=== PATIENT | female | born 1955 | race Caucasian/White ===

== ENCOUNTER 2023-03-12 09:01 | Emergency (ER) | payer MEDICARE, OTHER, SELFPAY ==
--- NOTE | ~2023-03-12 | XR_ITS ---
EXAMINATION: XR chest 2V DATE: 03/12/2023 10:15 INDICATION: Cough TECHNIQUE: PA and lateral views of the chest are obtained. COMPARISON: 07/25/2007 FINDINGS: An airspace opacity is present in the right midlung zone. No pleural effusion or pneumothor ax. The cardiomediastinal silhouette is normal. The visualized bones and soft tissues are unremarkabl e. IMPRESSION: 1. Airspace opacity of the right midlung zone which is likely infectious or inflammatory however unde rlying neoplasm could have a similar appearance. Follow-up with nonemergent chest CT is recommended. Reviewed, dictated and finalized at location A. IMPRESSION: 1. Airspace opacity of the right midlung zone which is likely infectious or inf lammatory however underlying neoplasm could have a similar appearance. Follow-u p with nonemergent chest CT is recommended.
[2023-03-12 09:16] VITALS: BP 122/56; PULSE 94; RESP 20; TEMP 37.8; O2SAT 96
--- NOTE | 2023-03-12 10:03 | ED.GENADULT ---
HPI - General Adult General Chief complaint: Upper Respiratory Infection Stated complaint: cough,low grade fever,fatigue Source: patient Mode of arrival: ambulatory Limitations: no limitations History of Present Illness HPI narrative: Patient presents for evaluation of respiratory symptoms for the last 6 days. She reports a productive cough of green/brown sputum a shortness of breath. She has underlying asthma. She has not required her albuterol inhaler much. She reports fever and chills but denies any nausea, vomiting, diarrhea. No recent sick contacts to her knowledge. She has not been taking any OTC medications for her symptoms. She does not smoke. She also reports an erythematous lesion to the right lower leg and a no other to the abdomen for the last 3 days. No new lotions, soaps, detergents, topical products. It does not itch. She does spend time outdoors and lives in the [place]. Related Data Home Medications Medication Instructions Recorded Confirmed amlodipine 5 mg tablet 5 mg PO DIRECTED 03/12/23 03/12/23 atorvastatin 10 mg tablet 10 mg PO DIRECTED 03/12/23 03/12/23 citalopram 20 mg tablet 20 mg PO DIRECTED 03/12/23 03/12/23 conjugated estrogens 0.625 mg/gram 03/12/23 03/12/23 vaginal cream (Premarin) ezetimibe 10 mg tablet 10 mg PO DIRECTED 03/12/23 03/12/23 mometasone 220 mcg/actuation(30 1 inh inhalation DIRECTED 03/12/23 03/12/23 doses) breath activated powder inhaler (Asmanex Twisthaler) Allergies Allergy/AdvReac Type Severity Reaction Status Date / Time Sulfa (Sulfonamide Allergy Severe Hives Verified 03/12/23 09:34 Antibiotics) azithromycin Allergy Intermediate heart Verified 03/12/23 09:34 arrthymias ofloxacin AdvReac Intermediate anxiety Verified 03/12/23 09:34 Review of Systems Review of Systems: CONSTITUTIONAL: Reports fever and chills EYES: Denies visual changes, redness, or discharge. ENT: Denies rhinorrhea, congestion, sore throat, or otalgia. CARDIOVASCULAR: Denies chest pain, palpitations, or edema. RESPIRATORY: Reports productive cough of green/brown sputum and SOB GASTROINTESTINAL: Denies abdominal pain, nausea, vomiting, or diarrhea. GENITOURINARY: Denies dysuria or hematuria. SKIN: Reports erythematous lesion to the right lower leg MUSCULOSKELETAL: Denies back pain, joint pain, or myalgia. NEUROLOGIC: Denies headache, numbness, dizziness, or weakness. PSYCHIATRIC: Denies anxiety or depression. PMFSH Past Medical History Medical History Asthma Hypertension Surgical History Surgical History No pertinent past surgical history Family History Family History Mother Family history non-contributory Social History Social History Smoking status: Never smoker Substance use: never Living arrangements: with family Gender identity (if verbalized by the patient): Female Sexual Orientation (if Verbalized by the Patient): Straight or Heterosexual Spiritual care concerns: No Exam Narrative: GENERAL: Well-appearing, well-nourished, and in no acute distress. HEAD: Normocephalic, atraumatic. EYES: PERRLA and EOMI. ENT: Nares clear, no rhinorrhea or epistaxis. Mucous membranes moist. Oropharynx without tonsillar hypertrophy exudate or other lesions. Bilateral TMs pearly willis nonbulging NECK: Supple. No adenopathy or masses. No carotid bruits or JVD CHEST: Wheezing noted in posterior lung davis bilaterally. Cough present on exam. HEART: Regular rate and rhythm. No murmur heard. Normal peripheral pulses. ABDOMEN: Soft, nontender, nondistended, normal active bowel sounds. EXTREMITIES: Normal range of motion. No edema. SKIN: There is an approximately 3 cm annular erythematous lesion to the right lower
[2023-03-12] MEDS: predniSONE 20 MG TABLET 40 MG PO (10:20)
[2023-03-12] MEDS: IPRATROPIUM BR 0.02% INH SOLN 0.5 MG/2.5 ML VIAL INHALATION (10:20)
[2023-03-12] MEDS: ALBUTEROL SULFATE NEB 2.5 MG/3 ML INH INHALATION (10:20)
== END 2023-03-12 10:56 | disposition home or self-care (01) ==
PROVIDERS: Emergency Provider Nurse Practitioner; PCP Nurse Practitioner Family
DX: J18.9 Pneumonia, unspecified organism (principal); Z20.822 Contact with and (suspected) exposure to COVID-19; J45.909 Unspecified asthma, uncomplicated; I10 Essential (primary) hypertension
CPT/HCPCS: 71046; 87081; 87426; 87804; 87880; 94640; 99213; C9803; G0463; J7512

== ENCOUNTER 2024-10-16 18:36 | Emergency (ER) | payer MEDICARE, OTHER, SELFPAY ==
--- NOTE | ~2024-10-16 | XR_ITS ---
CHEST RADIOGRAPH, PA AND LATERAL CLINICAL HISTORY: cough . COMPARISON: 03/12/2023 TECHNIQUE: PA and lateral views of the chest. FINDINGS The cardiomediastinal silhouette is unremarkable. Increased airspace opacification within the left upper lobe for which an early infiltrate is suspecte d. The remainder of the lungs are clear. IMPRESSION: Left upper lobe infiltrate, as detailed above. Reviewed, dictated and finalized at location A.
--- OUTSIDE RECORDS SUMMARY | 2024-10-16 18:38 | XMS_ITS | Encounter Summary ---
Author Organization [facility] Address [address] [place] [address] Care Team Providers Care Rn Hemodialysis Name Role Phone Shruthi Salazar MD Unavailable [phone] Shruthi Salazar MD Unavailable + [phone] Magalis Morales ASSOCIATE SCHOOL PSYCHOLOGIST Primary Care Provider [phone] Danielle Lima DO Unavailable [phone] Nelia Hager ASSOCIATE SCHOOL PSYCHOLOGIST Primary Care Provider Reason for Visit * Reason Onset Date Comments Scheduling Appointments 07/07/2021 REMINDER CALL FOR DEXA. Encounter Details Date Type Department Care Team (Late st Contact Info) Description 07/07/2021 Telephone [facility] [address] [place] [address] Nathaly Wan RT Scheduling Appointments (REMINDER CALL FOR DEXA. ) Social History Tobacco Use Types Packs/Day Years Used Date Smoking Tobacco: Never Smokeless Tobacco: Never Alcohol Use Standard Drinks/Week Comments Yes 0 (1 standard drink = 0.6 oz pur e alcohol) socially Humiliation, Afraid, Rape, and Kick questionnair e Answer Date Recorded Within the last year, have y ou been afraid of your partner or ex-partner? No 07/21/2020 Within the last year, have y ou been humiliated or emotionally abused in other ways by your partner or ex-partner? No Within the last year, have y ou been kicked, hit, slapped, or otherwise physically hurt by your partner or ex-partner? No 07/21/2020 Within the last year, have y ou been raped or forced to have any kind of sexual activity by your partner or ex-partner? No 07/21/2020 Social Connection and Isolat ion Panel [NHANES] Answer Date Recorded In a typical week, how many times do you talk on the phone with family, friends, or neighbors? More than three times a week 07/21/2020 How often do you get togethe r with friends or relatives? Once a week 07/21/2020 How often do you attend chur ch or mormon services? Never 07/21/2020 Do you belong to any clubs o r organizations such as mosque groups, unions, fraternal or athletic groups, or school groups? No 07/21/2020 How often do you attend meet ings of the clubs or organizations you belong to? Never 07/21/2020 Are you , , di vorced, , never , or living with a partner? 07/21/2020 Overall Financial Resource Strain (CARDIA) Answe r Date Recorded How hard is it for you to pa y for the very basics like food, housing, medical care, and heating? Not hard at all 07/21/2020 PHQ-2 Answer Date Recorded PHQ-2 Total Score (If total score is 3 or more points, staff should administer the PHQ-9) 0 01/22/2021 [facility]ational Stress Questionnaire Answer Date Recorded Do you feel stress - tense, restless, nervous, or anxious, or unable to sleep at night because your mind is troubled all the time - these days? Not at all 07/21/2020 Exercise Vital Sign Answer Date Recorde d On average, how many days pe r week do you engage in moderate to strenuous exercise (like a brisk walk)? 4 days 07/21/2020 On average, how many minutes do you engage in exercise at this level? 20 min 07/21/2020 Hunger Vital Sign Answer Date Recorded Within the past 12 months, y ou worried that your food would run out before you got the money to buy more. Never true 07/21/20 20 Within the past 12 months, t he food you bought just didn't last and you didn't have money to get more. Never true 07/21/2020 PRAPARE - Transportation Answer Date Re corded In the past 12 months, has l ack of transportation kept you from medical appointments or from getting medications? No 07/02 In the past 12 months, has l ack of transportation kept you from meetings, work, or from getting things needed for daily living? No 07/21/2020 Education Answer Date Recorded What is the highest level of school you have completed or the highest degree you have received? High school graduate 07/21/2020 Comments No Sex and Gender Information Value Date Recorded Sex Assigned at Not on file Legal Sex Female 2:34 PM STATION HELPER Gender Identity Female 06/21/2019 9:01 AM STATION HELPER Sexual Orientation Straight 06/21/2019 9: 01 AM STATION HELPER documented as of this encounter Plan of Treatment Not on file documented as of this encounter Visit Diagnoses Not on filedocumented in this encounter Care Teams Rn Hemodialysis Relationship Specialty Start Date End Date Magalis Morales NP PCP - General 06/22/19 06/03/22 Nelia Hager NP [address] [place] [address] PCP - General Family Medicine 06/04/22 Shruthi Salazar MD Allergy and Immunology 03/17/18 Shruthi Salazar MD Allergy and Immunology 12/20/18 09/07/21 Danielle Lima DO [address] [place] [address] Referring Physician Dermatology 07/21/20 documented as of this encounter
--- OUTSIDE RECORDS SUMMARY | 2024-10-16 18:38 | XMS_ITS | Encounter Summary ---
Author Organization [facility] Address [address] [place] [address] Care Team Providers Care Head Refrigerating Engineer Name Role Phone Shruthi Salazar MD Unavailable [phone] Danielle Lima DO Unavailable [phone] Nelia Hager NP Primary Care Provider [phone] Encounter Details Date Type Department Care Team (Late st Contact Info) Description 08/22/2023 Telephone [facility] [address] [place] [address] Lo Yarbrough, RT Social History Tobacco Use Types Packs/Day Years Used Date Smoking Tobacco: Former Cigarettes Passive Smoke Exposure: Past Smokeless Tobacco: Never Alcohol Use Standard Drinks/Week [...] often do you attend chur ch or mormonism services? Never 07/21/2020 Do you belong to any clubs o r organizations such as anglican groups, unions, fraternal or athletic groups, or [...] points, staff should administer the PHQ-9) 0 08/18/2023 [facility] - Occupational Stress Questionnaire Answer Date Recorded [...] on file Legal Sex Female 2:34 PM HEAD OF INTEGRATED MEDIA Gender Identity Female 06/21/2019 9:01 AM HEAD OF INTEGRATED MEDIA Sexual Orientation Straight 06/21/2019 9: 01 AM HEAD OF INTEGRATED MEDIA documented as of this encounter Plan of Treatment Not on file documented as of this encounter Visit Diagnoses Not on filedocumented in this encounter Care Teams Head Refrigerating Engineer Relationship Specialty Start Date End Date Nelia Hager NP [address] [place] [address] PCP - General Family Medicine 06/04/22 Shruthi Salazar MD Allergy and Immunology 03/17/18 Danielle Lima DO [address] [place] [address] Referring Physician Dermatology 07/21/20 documented as of this encounter
--- OUTSIDE RECORDS SUMMARY | 2024-10-16 18:38 | XMS_ITS ---
Author Organization [facility] Address [address] [place] [id number] Care Team Providers Care Health And Fitness Professor Name Role Phone Magalis Cole Primary Care Provider Unavail able Shruthi Salazar Unavailable [phone] REASON FOR VISIT SCIT - Traditional Schedule Allergy immunotherapy Medications Medication SIG (Take, Route, Frequency, Duration) Notes Start Date End Date Status Arnuity Ellipta 100 MCG/ACT 1 puff inhaled daily for 30 days 12/22/2023 Active Lipitor 10 MG 1 tab(s) orally once a day for 30 day(s) Active CeleXA 20 MG 1 tab(s) orally once a day for 30 day(s) Active Norvasc 5 MG 1 tab(s) orally once a day for 30 day(s) Active Arnuity Ellipta 200 MCG/ACT as directed inhaled every 24 hours for 90 days Not-Taking Zetia 10 MG 1 tab(s) orally once a day for 30 day(s) Active ZyrTEC Allergy 10 MG 1 tab(s) orally once a day Active SIT (TRADITIONAL) variable per schedule SC per schedule for to be determined Active PROBIOTIC FORMULA (BACILLUS COAGULANS) - 1 CAP(S) ORALLY ONCE A DAY *Please review for potential replacement for e-prescription and drug interaction check* Not-Taking Vitamin D3 1000 UNIT as directed orally once a day for 30 day(s) Active Auvi-Q 0.3 MG/0.3ML 0.3 mg intramuscularly once for 1 dose(s) Active ASMANEX TWISTHALER 30 DOSE 220 MCG/INH 1 PUFF(S) INHALED ONCE A DAY (IN THE EVENING) for 90 DAYS *Please review for potential replacement for e-prescription and drug interaction check* Not-Taking Flonase Allergy Relief 50 MCG/ACT 1 spray(s) intranasally once a day Not-Taking PROAIR HFA CFC free 90 mcg/inh 2 puff(s) inhaled Q4-6 hours, PRN and per the asthma action plan for 30 day(s) Active Pataday 0.2 % 1 gtt in each affected eye once a day for 90 days Not-Taking FLONASE 50 mcg/inh 1 spray(s) intranasally once a day Active AUVI -Q 0.3 mg 0.3 mg intramuscularly once for 1 dose(s) Active PATADAY 0.2% 1 gtt in each affected eye once a day for 90 days Active Encounters Encounter Location Date Provider Diagnosis [facility] [address] [place] [phone] 10/03/2024 Shruthi Salazar Allergic rhinitis du e to pollen J30.1 ; Other allergic rhinitis J30.89 ; Allergic rhinitis due to animal (cat) (dog) hair and dander J30.81 and Other chronic allergic conjunctivitis H10.45 Assessments Encounter Date Diagnosis (ICD Code) Assessment Notes Treatment Notes Treatment Clinical Notes Section Notes 10/03/2024 Allergic rhinitis due to pollen (ICD-10 - J30.1) 10/03/2024 Other allergic rhinitis (ICD-10 - J30.89) 10/03/2024 Allergic rhinitis due to animal (cat) (dog) hair and dander (ICD-10 - J30.81) 10/03/2024 Other chronic allergic conjunctivitis (ICD-10 - H10.45) Plan Of Treatment Medication Medication Name Sig Start Date Stop Date Notes SIT (TRADITIONAL) variable per schedule SC per schedule for to be determined Next Appt Details Follow Up: 1 Week, Reason: Provider Name:Shruthi monroy, 10/31/2024 10:00:00 AM, [address], [address], Provider Name:Shruthi monroy, 10/31/2024 11:00:00 AM, [address], [address], [place], [address], Progress Notes * Sherry MOFFETT ADOB:[birth year] (69 yo F)Acc No.[id number]:10/03/2024 SCIT-Aeroallergen Patient: Sherry SAUCEDO Provider: Igor Salazar MD :1955 A ge:69 Y S ex:Female Date:10/03/2024 Address:[address] [place], [place] [phone] Pcp:Magalis Cole Subjective: * Chief Complaints: * S CIT - Traditional Schedule Allergy immunotherapy * HPI: * Introduction: The patient is here for scheduled immunotherapy. Please see the attached specialty form regarding the specifics of the administration of these vaccines. As per our protocol, the must undergo a screening health questionnaire (medication changes, reaction(s) to last immunotherapy dose(s), current health status, ACT (if appropriate), self-injectable epinephrine on patient(?) and peak flow (if appropriate)). Also, the patient must wait in our office for 30 minutes after receiving the vaccine(s). Furthermore, every patient must have an epinephrine pen (self-injectable) with them at the time of administration--and carry if for the following 1.5 hours after they leave our office. The patient must also have taken their antihistamine the day of the injection, preferably 2 hours prior. The consent form for SCIT (subcutaneous immunotherapy) is on file. * Medical History: * Surgical History: * Hospitalization/Major Diagno stic Procedure: * Medications: T akingPATADAY 0.2% solution 1 gtt in each affected eye once a day FLONASE 50 mcg/inh spray 1 spray(s) intranasally once a day AUVI -Q 0.3 mg kit 0.3 mg intramuscularly once PROAIR HFA CFC free 90 mcg/inh aerosol 2 puff(s) inhaled Q4-6 hours, PRN and per the asthma action plan Auvi-Q 0.3 MG/0.3ML Solution Auto-injector 0.3 mg intramuscularly once Zetia 10 MG Tablet 1 tab(s) orally once a day ZyrTEC Allergy 10 MG Tablet 1 tab(s) orally once a day Vitamin D3 1000 UNIT Capsule as directed orally once a day Lipitor 10 MG Tablet 1 tab(s) orally once a day CeleXA 20 MG Tablet 1 tab(s) orally once a day Norvasc 5 MG Tablet 1 tab(s) orally once a day Arnuity Ellipta 100 MCG/ACT Aerosol Powder Breath Activated 1 puff inhaled daily SIT (TRADITIONAL) variable see record per schedule SC per schedule Taking PATADAY 0.2% solution 1 gtt in each affected eye once a day Taking FLONASE 50 mcg/inh spray 1 spray(s) intranasally once a day Taking AUVI -Q 0.3 mg kit 0.3 mg intramuscularly once Taking PROAIR HFA CFC free 90 mcg/inh aerosol 2 puff(s) inhaled Q4-6 hours, PRN and per the asthma action plan Taking Auvi-Q 0.3 MG/0.3ML Solution Auto-injector 0.3 mg intramuscularly once Taking Zetia 10 MG Tablet 1 tab(s) orally once a day Taking ZyrTEC Allergy 10 MG Tablet 1 tab(s) orally once a day Taking Vitamin D3 1000 UNIT Capsule as directed orally once a day Taking Lipitor 10 MG Tablet 1 tab(s) orally once a day Taking CeleXA 20 MG Tablet 1 tab(s) orally once a day Taking Norvasc 5 MG Tablet 1 tab(s) orally once a day Taking Arnuity Ellipta 100 MCG/ACT Aerosol Powder Breath Activated 1 puff inhaled daily Taking SIT (TRADITIONAL) variable see record per schedule SC per schedule Not-Taking/PRNPataday 0.2 % Solution 1 gtt in each affected eye once a day Flonase Allergy Relief 50 MCG/ACT Suspension 1 spray(s) intranasally once a day ASMANEX TWISTHALER 30 DOSE 220 MCG/INH AEROSOL POWDER 1 PUFF(S) INHALED ONCE A DAY (IN THE EVENING) , Notes to Pharmacist: *Please review for potential replacement for e-prescription and drug interaction check*PROBIOTIC FORMULA (BACILLUS COAGULANS) - CAPSULE 1 CAP(S) ORALLY ONCE A DAY , Notes to Pharmacist: *Please review for potential replacement for e-prescription and drug interaction check*Arnuity Ellipta 200 MCG/ACT Aerosol Powder Breath Activated as directed inhaled every 24 hours Not-Taking/PRN Pataday 0.2 % Solution 1 gtt in each affected eye once a day Not-Taking/PRN Flonase Allergy Relief 50 MCG/ACT Suspension 1 spray(s) intranasally once a day Not-Taking/PRN ASMANEX TWISTHALER 30 DOSE 220 MCG/INH AEROSOL POWDER 1 PUFF(S) INHALED ONCE A DAY (IN THE EVENING) , Notes to Pharmacist: *Please review for potential replacement for e-prescription and drug interaction check*Not-Taking/PRN PROBIOTIC FORMULA (BACILLUS COAGULANS) - CAPSULE 1 CAP(S) ORALLY ONCE A DAY , Notes to Pharmacist: *Please review for potential replacement for e-prescription and drug interaction check*Not-Taking/PRN Arnuity Ellipta 200 MCG/ACT Aerosol Powder Breath Activated as directed inhaled every 24 hours Objective: * Vitals: Assessment: * Assessment: 1. A llergic rhinitis due to pollen - J30.1 (Primary) 2 . O ther allergic rhinitis - J30.89 3 . A llergic rhinitis due to animal (cat) (dog) hair and dander - J30.81 4 . O ther chronic allergic conjunctivitis - H10.45 Plan: * Treatment: * Procedure Codes: 9 5117 IMMUNOTHERAPY INJECTIONS * Follow Up: 1 Week * Billing Information: * Visit Code: * Procedure Codes: 52296 IMMUNOTHERAPY INJECTIONS. * ERSMITH APPRENTICE Sign off status: Completed true * Provider: Igor Salazar MD Date: 10/03/2024 Generated for Yariel bateman/Allen/Deisy on: 0 10/16/2024 06:38 PM CDT History and Physical Notes * HPI (History of Present Illness) Category Sub-Category Detail Notes Category Not es *Introduction The patient is here for scheduled immunotherapy. Please see the attached specialty form regarding the specifics of the administration of these vaccines. As per our protocol, the must undergo a screening health questionnaire (medication changes, reaction(s) to last immunotherapy dose(s), current health status, ACT (if appropriate), self-injectable epinephrine on patient(?) and peak flow (if appropriate)). Also, the patient must wait in our office for 30 minutes after receiving the vaccine(s). Furthermore, every patient must have an epinephrine pen (self-injectable) with them at the time of administration--and carry if for the following 1.5 hours after they leave our office. The patient must also have taken their antihistamine the day of the injection, preferably 2 hours prior. The consent form for SCIT (subcutaneous immunotherapy) is on file.
--- OUTSIDE RECORDS SUMMARY | 2024-10-16 18:38 | XMS_ITS ---
Author Organization [facility] Address [address] [place] [phone] Care Team Providers Care Relocation Specialist Name Role Phone Magalis Cole Primary Care Provider Unavail able Shruthi Salazar Unavailable [phone] REASON FOR VISIT SCIT - Traditional Schedule Allergy immunotherapy Medications Medication SIG (Take, Route, Frequency, Duration) Notes Start Date End Date Status SIT (TRADITIONAL) variable per schedule SC per schedule for to be determined Active Encounters Encounter Location Date Provider Diagnosis [facility] [address] [place] [id number] 09/05/2024 Shruthi Salazar Allergic rhinitis du e to pollen J30.1 ; Other allergic rhinitis J30.89 ; Allergic rhinitis due to animal (cat) (dog) hair and dander J30.81 and Other chronic allergic conjunctivitis H10.45 Assessments Encounter Date Diagnosis (ICD Code) Assessment Notes Treatment Notes Treatment Clinical Notes Section Notes 09/05/2024 Allergic rhinitis due to pollen (ICD-10 - J30.1) 09/05/2024 Other allergic rhinitis (ICD-10 - J30.89) 09/05/2024 Allergic rhinitis due to animal (cat) (dog) hair and dander (ICD-10 - J30.81) 09/05/2024 Other chronic allergic conjunctivitis (ICD-10 - H10.45) Plan Of Treatment Medication Medication Name Sig Start Date Stop Date Notes SIT (TRADITIONAL) variable per schedule SC per schedule for to be determined Next Appt Details Follow Up: 1 Week, Reason: Provider Name:Shruthi monroy, 10/31/2024 10:00:00 AM, [address] [facility], [address], [place], [address], Provider Name:Shruthi monroy, 10/31/2024 11:00:00 AM, [address] [facility], [address], [place], [address], Progress Notes * Sherry MOFFETT ADOB:[birth year] (69 yo F)Acc No.[id number]:09/05/2024 SCIT-Aeroallergen Patient: Sherry SAUCEDO Provider: Igor Salazar MD :1955 A ge:69 Y S ex:Female Date:09/05/2024 Address:[address] [place], [place] [id number] Pcp:Magalis Cole Subjective: * Chief Complaints: * [...] * Hospitalization/Major Diagno stic Procedure: * Medications: Objective: * Vitals: Assessment: * Assessment: 1. [...] Information: * Visit Code: * Procedure Codes: 96490 IMMUNOTHERAPY INJECTIONS. * K OUT MAN Sign off status: Completed true * Provider: Igor Salazar MD Date: 0 09/05/2024 Generated for Yariel bateman/Allen/Deisy on: 0 10/16/2024 [...]
--- OUTSIDE RECORDS SUMMARY | 2024-10-16 18:39 | XMS_ITS | Encounter Summary ---
Author Organization [facility] Address [address] [place] [address] Care Team Providers Care General Magistrate Name Role Phone Unavailable Primary Care Provider Unavailabl e Encounter Details Date Type Department Care Team (Late st Contact Info) Description 08/09/2018 Lab Requisition [facility] [address] [facility] [facility] [place] [id number] Danielle Lima DO [address] [facility] [address] [place] [address] Social History Tobacco Use Types Packs/Day Years Used Date Smoking Tobacco: Never Assessed Sex and Gender Information Value Date Recorded Sex Assigned at Not on file Gender Identity Not on file Sexual Orientation Not on file documented as of this encounter Plan of Treatment Not on file documented as of this encounter Procedures Procedure Name Priority Date/Time Associated Diagnosis Comments DERMATOPATH TECHNICAL REPORT Routine 08/08/2018 12:00 AM CIRCULATION CLERK documented in this encounter Results * DERMATOPATH TECHNICAL REPORT (08/08/2018 12:00 AM CIRCULATION CLERK) Case Report Dermatopathology Report Case: [id number] Authorizing Provider: Danielle Lima DO Collected: 08/08/2018 12:00 AM Pathologist: Opal Ricci MD Received: 08/09/2018 07:07 AM Specimens: A) - Skin, right ant lower leg B) - Skin, left calf 9 11:48 AM CIRCULATION CLERK DERMATOPATHOLOGY LABORATORY Addendum 1 At the request of the diagnosing physician, the technical component for MART-1/Melan A on Specimen B was performed by [facility] Dermatopathology Laboratory. 9 11:48 AM CIRCULATION CLERK DERMATOPATHOLOGY LABORATORY Addendum electronically signed by Opal Ricci MD on 08/11/2018 at 11:48 AM Clinical History A: R/O NMSC, irregular color, irritated. B: R/O ISK vs MM, irregular color, irritated. 11:48 AM [facility] DERMATOPATHOLOGY LABORATORY Gross Description Specimen A: Received is one formalin filled container labeled with the patient's name and designated right ant lower leg. The specimen consists of a shave biopsy measuring [id number]. Jar 0. Specimen B: Received is one formalin filled container labeled with the patient's name and designated left calf. The specimen consists of a shave biopsy measuring [id number]. Jar 0. [facility] Dermatopathology Laboratory performed the technical component only. 11:48 AM [facility] DERMATOPATHOLOGY LABORATORY Embedded Images 11:48 AM [facility] DERMATOPATHOLOGY LABORATORY DISCLAIMER An external and internal positive and negative controls are appropriate for the histochemical, immunohistochemical and immunofluorescence stain(s) in this case (if any), except where stated explicitly. The performance characteristics of the stain(s) cited in this report were developed and its performance characteristic determined by the Dermatopathology Laboratory at [facility]. These tests need not be, and therefore are not, approved by the [place] Food and Drug Administration. The tests are used for clinical purposes. 11:48 AM [facility] DERMATOPATHOLOGY LABORATORY Pathology/Cytology TISSUE SPECIMEN FROM SKIN / Unknown 08/08/2018 08/09/2018 7:07 AM CIRCULATION CLERK Miscellaneous samples (specimen) TISSUE SPECIMEN FROM SKIN / Unknown 08/08/2018 08/09/2018 7:07 AM CIRCULATION CLERK Danielle Lima DO LAB - PATHOLOGY/C YTOLOGY ORDERABLES DERMATOPATHOLOGY LABORATORY [facility] - Department of Dermatology [address] [place] [address], [address] [place] [address], [facility] [phone] documented in this encounter Visit Diagnoses Not on filedocumented in this encounter
--- OUTSIDE RECORDS SUMMARY | 2024-10-16 18:39 | XMS_ITS | Clinical Summary ---
Author Organization [facility] Address [address] [place] [address] Care Team Providers Care Sap Integration Architect Name Role Phone Shruthi Salazar MD Unavailable [phone] Danielle Lima DO Unavailable [phone] Nelia Hager NP Primary Care Provider [phone] Allergies Active Allergy Reactions Criticality Noted Date Comments Azithromycin Other (See comments) Reaction: pal, Ciprofloxacin Other (See comments) Reaction: anxeity, Echinacea Other (See comments) Low Reaction: Other, Reaction: Other, Sulfa (Sulfonamide Antibiotics) Sulfanilamide Rash Reaction: Rash, , Reaction: Rash, , Medications albuterol HFA (PROVENTIL HFA,VENTOLIN HFA) 90 mcg/actuation inhaler INHALE TWO PUFFS BY MOUTH EVERY 4 TO 6 HOURS NEEDED 18 Inhaler 2 5 Active cholecalciferol (VITAMIN D-3) 2,000 unit tablet Take 3 tablets (6,000 Units total) by mouth daily Active cetirizine (ZyrTEC) 10 mg tablet Take 1 tablet (10 mg total) by mouth nightly Active Lactobacillus acidophilus (Probiotic) 10 billion cell capsule Take by mouth Active Asmanex Twisthaler 220 mcg/ actuation (30) aerosol powdr breath activated INHALE 1 PUFF BY MOUTH EVERY EVENING 2 Active EPINEPHrine (Auvi-Q) 0.3 mg/0.3 mL auto-injection syringe Active estrogens, conjugated, (Premarin) vaginal cream Apply small amount to fingertiip and apply to inner labia 2x/week prn. 30 g 2 3 Active amLODIPine (NORVASC) 5 mg tabletIndications: Essential hypertension Take 1 tablet (5 mg total) by mouth daily 90 tablet 3 4 Active fluticasone furoate (ARNUITY) 100 mcg/actuation inhaler Inhale 1 puff daily Rinse mouth with water after use. Do not swallow. Active clotrimazole-betam ethasone (LOTRISONE) cream Apply topically 2 (two) times a day as needed (rash) 30 g 1 4 Active atorvastatin (LIPITOR) 10 mg tablet Take 1 tablet (10 mg total) by mouth daily 90 tablet 4 4 Active nystatin powder Apply topically 4 (four) times a day 15 g 1 4 Active nystatin cream Apply topically 2 (two) times a day as needed (rash) 30 g 1 4 Active ezetimibe (ZETIA) 10 mg tabletIndications: Hyperlipidemia, unspecified hyperlipidemia type Take 1 tablet (10 mg total) by mouth daily 90 tablet 1 4 Active clindamycin (CLEOCIN T) 1 % gel Apply topically 2 (two) times a day Apply to face once daily. 60 g 1 5 Active citalopram (CeleXA) 20 mg tabletIndications: Mild episode of recurrent major depressive disorder Take 1 tablet (20 mg total) by mouth daily 90 tablet 1 5 Active Active Problems Problem Noted Date Diagnosed Date Medicare annual wellness visit, subsequent 08/23 Assessment & Plan (08/23/2024 11:31 AM MACHINE LEATHER TRIMMER): A yearly Medicare Annual Wellness Visit has been performed today. Sherry Moffett is up to date on screening tests. She is in need of None- no screening indicated at this time- these have been ordered. She is not up to date on needed preventative vaccinations; She is in need of Zoster and Covid-19 (booster). These have been ordered/arranged unless otherwise indicated. Age-related cataract of both eyes 02/09/2022 Assessment & Plan (02/09/2022 9:16 AM CDT): Going to be having cataracts removed by Dr. Escalera, regular eye doctor is Dr. Urias. She will reach out to us for preop clearance once she has surgery date. At risk for loss of bone density 07/10/2019 Overview (02/09/2022): Is Found 07/2019 on bone density. We will start patient on weekly fosamax x 2 yrs and repeat bone density in 2 yrs. Bone density done on 07/08/2021 showed normal bone density Switch to calcium/vit d Assessment & Plan (02/09/2022 7:34 AM CDT): HPI: Condition is improving A&P:osteoporosis noted on 07/2019 on bone density. We started patient on weekly fosamax x 2 yrs and repeated bone density in 2 yrs. Bone density done on 07/08/2021 showed normal bone density Switched from fosamax to calcium/vit d Assessment & Plan (08/05/2021 10:26 AM MACHINE LEATHER TRIMMER): HPI: Condition is improving A&P: Discussed/ordered labs, encouraged healthy, low carbohydrate lifestyle and at least 150min/week of exercise, Bone density done on 07/08/2021 showed normal bone density We recommend calcium 500-1000 mg per day and vitamin D3 supplementation 2000 units per day. Also, daily exercise has been shown to help build and maintain bone density and prevent onset of osteoporosis. Assessment & Plan (01/22/2021 10:58 AM CDT): HPI: Condition is stable A&P: Discussed/ordered labs, encouraged healthy, low carbohydrate lifestyle and at least 150min/week of exercise, continue on Fosamax 70mg weekly and the probiotic daily taking the Fosamax. Push water. Bone density done in July 2019 and we will repeat bone density in July 2021. Assessment & Plan (07/17/2020 3:34 PM MACHINE LEATHER TRIMMER): HPI: Condition is stable A&P: Discussed/ordered labs, encouraged healthy, low carbohydrate lifestyle and at least 150min/week of exercise, continue on Fosamax x2 years. This was found on bone density July 2019, will repeat bone density July 2021 She got nausea/gassy/bloated/gained 7 pounds after the fosamax. She took it for 6 wks but then stopped it. Discussed w pt that she needs to be on this medication. We will have her take the probiotic a day before the medication and the day of, may need to take it the day after also. Push water. Please start taking probiotic 20billion CFU daily meterman. This will help maintain the good bacteria that is in your gut. Please note that the refrigerated probiotics are going to be superior to the shelf stable ones. However, once the refrigerated ones are no longer cold, they are old and should be considered not effective. For this reason, I recommend purchasing a bottle of shelf stable ones also if you are going to be out of town or do not have a stable refrigeration system in place for the probiotic. Assessment & Plan (12/25/2019 10:58 AM CDT): Found 07/2019 on bone density. Pt did not start on fosamax yet. Discussed risks/benefit with pt and she will start now. Please take daily probiotic to help with GI distress Mixed hyperlipidemia 12/20/2018 Assessment & Plan (08/23/2024 11:29 AM MACHINE LEATHER TRIMMER): Cholesterol well controlled, continues Atorvastatin, fish oil, and Zetia. No side effects noted and liver function wnl. Assessment & Plan (02/16/2024 11:30 AM CDT): Cholesterol well controlled, continues Atorvastatin, fish oil, and Zetia. No side effects noted and liver function wnl. Assessment & Plan (02/10/2023 11:00 AM CDT): Cholesterol well controlled, continues Atorvastatin, fish oil, and Zetia. No side effects noted and liver function wnl. Assessment & Plan (08/12/2022 12:30 PM MACHINE LEATHER TRIMMER): Continues Atorvastatin and fish oil, no side effects reported. Labs ordered Assessment & Plan (02/09/2022 7:35 AM CDT): HPI: Condition is stable A&P: Discussed/ordered labs, encouraged healthy, low carbohydrate lifestyle and at least 150min/week of exercise, continue on atorvastatin 10 mg daily, fish oil daily Assessment & Plan (08/05/2021 10:29 AM MACHINE LEATHER TRIMMER): HPI: Condition is stable A&P: Discussed/ordered labs, encouraged healthy, low carbohydrate lifestyle and at least 150min/week of exercise, continue on Zetia 10 mg daily and start back on fish oil daily start on fish oil 2000-2400mg of EPA/DHA. You will find this by looking at the ingredients section of the bottle of fish oil. Please add the EPA and DHA numbers together and take enough capsules to meet the 2000-2400mg every day. This dose will help bring down your triglycerides along with a lower carb lifestyle and exercise. The brand [employer] [place] 3 2100 Olcenic Blend is a good brand and you will only need to take one capsule daily Assessment & Plan (01/22/2021 7:29 AM CDT): HPI: Condition is stable A&P: Discussed/ordered labs, encouraged healthy, low carbohydrate lifestyle and at least 150min/week of exercise, continue on Zetia 10 mg daily and fish oil daily. Assessment & Plan (07/17/2020 1:45 PM MACHINE LEATHER TRIMMER): HPI: Condition is stable A&P: Discussed/ordered labs, encouraged healthy, low carbohydrate lifestyle and at least 150min/week of exercise, continue on Zetia 10 mg on fish oil daily Assessment & Plan (12/25/2019 9:19 AM CDT): Discussed labs, Condition is stable, encouraged healthy, low carbohydrate diet and at least 150min/week of exercise, continue on zetia 10mg and fish oil-please take enough fish oil to meet the EPA/DHA to be 2200-2400mg daily Assessment & Plan (06/22/2019 10:10 AM MACHINE LEATHER TRIMMER): Discussed labs, Condition is stable, encouraged healthy, low carbohydrate diet and at least 150min/week of exercise, continue on zetia 10mg and fish oil-please take enough fish oil to meet the EPA/DHA to be 2200-2400mg daily Class 2 obesity due to exces s calories without serious comorbidity with body mass index (BMI) of 39.0 to 39.9 in adult 12/20/2018 Assessment & Plan (08/18/2023 12:53 PM MACHINE LEATHER TRIMMER): Has been working on diet modifications, down 5 lbs. Healthy, low carbohydrate lifestyle and exercise for 150min/week recommended Assessment & Plan (03/30/2023 1:56 PM CDT): Healthy, low carbohydrate lifestyle and exercise for 150min/week recommended Assessment & Plan (02/10/2023 11:01 AM CDT): Healthy, low carbohydrate lifestyle and exercise for 150min/week recommended Assessment & Plan (08/12/2022 12:31 PM MACHINE LEATHER TRIMMER): Healthy, low carbohydrate lifestyle and exercise for 150min/week recommended Assessment & Plan (02/09/2022 7:35 AM CDT): HPI: Condition is not at/near goal goal BMI <30 A&P: Healthy, high-protein, lower carbohydrate, lower fat lifestyle and exercise for 150min/week recommended Recommend tracking everything you put in your mouth on an dana like Sun-eee Lower carb substitutions: [employer] carries a zero net carb bread If you are looking for whole potatoes, like to use in soup or new potato shape/flavor, radishes are a great replacement If you are looking for mashed potatoes, riced cauliflower in the frozen bag section are a great replacement For pasta, try using zucchini noodles, lay them out on a cookie sheet and pat dry with a tea towel to try to remove as much moisture as possible. Heat your pasta sauce on the stove and put the noodles in for 30-45 seconds. If you leave them in much longer they will become mushy [place] and/or coconut flour instead of regular flour For pizza dough, try fathead pizza dough recipe online. To get a crispy crust, bake on one side for 8-12 min, then flip over and bake on the other side for 8-12 min, then put toppings on and bake until the cheese on top of pizza melts chaffles recipe online For ice cream, try the brand Enlightened To replace coffee creamer and make it low carb, use heavy creamer with sugar free [place] sweetener For chips, try Whisps or pork rinds For yogurt, try Two Good algerian yogurt Use Pinterest for recipe ideas. Type in low carb... Hand Measurements: A fist or cupped hand = 1 cup 1 cup = 1 -2 servings of fruit juice 1 oz. of cold cereal 2 oz. of cooked cereal, rice or pasta 8 oz. of milk or yogurt A thumb = 1 oz. of cheese Consuming low-fat cheese helps you meet the required servings from the milk, yogurt and cheese group. 1 oz. of low-fat cheese counts as 8 oz. of milk or yogurt. Handful = 1-2 oz. of snack food Thumb tip = 1 teaspoon Keep high-fat foods, such as peanut butter and mayonnaise, at a minimum. One teaspoon is equal to the end of your thumb, from the knuckle up. Three teaspoons equals 1 tablespoon. Palm = 3 oz. of meat Choose lean poultry, fish, shellfish and beef. One palm size portion equals 3 oz. for an adult and 1 -2 oz. for a child under 5. 1 tennis ball or a fist= 1/2 cup of fruit and vegetables Healthy diets include a variety of colorful fruits and vegetables every day. The secret to serving size is in your hand. Snacking can add up. Remember, 1 handful equals 1 oz. of nuts and small candies. For chips and pretzels, 2 handfuls equals 1 oz. Because hand sizes vary, compare your fist size to an actual measuring cup. Assessment & Plan (09/08/2021 9:41 AM MACHINE LEATHER TRIMMER): HPI: Condition is improving, but not at goal goal BMI <30 A&P: Healthy, high-protein, lower carbohydrate, lower fat lifestyle and exercise for 150min/week recommended, continue working with Nelia Hager NP for CHIP program. Substitutions: Recommend tracking everything you put in your mouth on an dana like Sun-eee or Gynzy [employer] carries a zero net carb bread If you are looking for whole potatoes, like to use in soup or new potato shape/flavor, radishes are a great replacement If you are looking for mashed potatoes, riced cauliflower in the frozen bag section are a great replacement For pasta, try using zucchini noodles, lay them out on a cookie sheet and pat dry with a tea towel to try to remove as much moisture as possible. Heat your pasta sauce on the stove and put the noodles in for 30-45 seconds. If you leave them in much longer they will become mushy [place] and/or coconut flour instead of regular flour For pizza dough, try fathead pizza dough recipe online. To get a crispy crust, bake on one side for 8-12 min, then flip over and bake on the other side for 8-12 min, then put toppings on and bake until the cheese on top of pizza melts chaffles recipe online For ice cream, try the brand Enlightened To replace coffee creamer and make it low carb, use heavy creamer with sugar free Torani sweetener For chips, try Whisps or pork rinds For yogurt, try Two Good algerian yogurt Use Pinterest for recipe ideas. Type in low carb... Assessment & Plan (08/05/2021 10:29 AM MACHINE LEATHER TRIMMER): HPI: Condition is not at/near goal goal BMI <30 A&P: Healthy, high-protein, lower carbohydrate, lower fat lifestyle and exercise for 150min/week recommended We will have pt see Nelia Hager NP for weight loss Substitutions: Recommend tracking everything you put in your mouth on an dana like Sun-eee or Seculertphorm [employer] carries a zero net carb bread If you are looking for whole potatoes, like to use in soup or new potato shape/flavor, radishes are a great replacement If you are looking for mashed potatoes, riced cauliflower in the frozen bag section are a great replacement For pasta, try using zucchini noodles, lay them out on a cookie sheet and pat dry with a tea towel to try to remove as much moisture as possible. Heat your pasta sauce on the stove and put the noodles in for 30-45 seconds. If you leave them in much longer they will become mushy [place] and/or coconut flour instead of regular flour For pizza dough, try fathead pizza dough recipe online. To get a crispy crust, bake on one side for 8-12 min, then flip over and bake on the other side for 8-12 min, then put toppings on and bake until the cheese on top of pizza melts chaffles recipe online For ice cream, try the brand Enlightened To replace coffee creamer and make it low carb, use heavy creamer with sugar free Torani sweetener For chips, try Whisps or pork rinds For yogurt, try Two Good algerian yogurt Use Pinterest for recipe ideas. Type in low carb... Assessment & Plan (01/22/2021 7:28 AM CDT): HPI: Condition is not at/near goal goal BMI <30 A&P: Healthy, high-protein, lower carbohydrate, lower fat lifestyle and exercise for 150min/week recommended Substitutions: Recommend tracking everything you put in your mouth on an dana like Sun-eee or Gynzy [employer] carries a zero net carb bread If you are looking for whole potatoes, like to use in soup or new potato shape/flavor, radishes are a great replacement If you are looking for mashed potatoes, riced cauliflower in the frozen bag section are a great replacement For pasta, try using zucchini noodles, lay them out on a cookie sheet and pat dry with a tea towel to try to remove as much moisture as possible. Heat your pasta sauce on the stove and put the noodles in for 30-45 seconds. If you leave them in much longer they will become mushy [place] and/or coconut flour instead of regular flour For pizza dough, try fathead pizza dough recipe online. To get a crispy crust, bake on one side for 8-12 min, then flip over and bake on the other side for 8-12 min, then put toppings on and bake until the cheese on top of pizza melts chaffles recipe online For ice cream, try the brand Enlightened To replace coffee creamer and make it low carb, use heavy creamer with sugar free Torani sweetener For chips, try Whisps or pork rinds For yogurt, try Two Good algerian yogurt Use Pinterest for recipe ideas. Type in low carb... Assessment & Plan (07/21/2020 10:17 AM MACHINE LEATHER TRIMMER): Healthy, low carbohydrate lifestyle and exercise for 150min/week recommended Assessment & Plan (07/17/2020 1:42 PM MACHINE LEATHER TRIMMER): HPI: Condition is stable A&P: Healthy, low carbohydrate lifestyle and exercise for 150min/week recommended Substitutions: [employer] carries a zero net carb bread If you are looking for whole potatoes, like to use in soup or new potato shape/flavor, radishes are a great replacement If you are looking for mashed potatoes, riced cauliflower in the frozen bag section are a great replacement For pasta, try using zucchini noodles, lay them out on a cookie sheet and pat dry with a tea towel to try to remove as much moisture as possible. Heat your pasta sauce on the stove and put the noodles in for 30-45 seconds. If you leave them in much longer they will become mushy [place] and/or coconut flour instead of regular flour For pizza dough, try fathead pizza dough recipe online. To get a crispy crust, bake on one side for 8-12 min, then flip over and bake on the other side for 8-12 min, then put toppings on and bake until the cheese on top of pizza melts chaffles recipe online For ice cream, try the brand Enlnithinened Use Pinterest for recipe ideas. Type in low carb... Assessment & Plan (12/25/2019 9:19 AM CDT): Healthy, low carbohydrate lifestyle and exercise for 150min/week recommended Assessment & Plan (06/22/2019 10:17 AM MACHINE LEATHER TRIMMER): Healthy, low carbohydrate diet and exercise for 150min/week recommended Assessment & Plan (12/20/2018 11:09 AM CDT): Obesity is unchanged. Discussed the patient's BMI. The BMI is above average; BMI management plan is completed. General weight loss/lifestyle modification strategies discussed (elicit support from others; identify saboteurs; non-food rewards, etc). Basal cell carcinoma (BCC) of skin of face 12/18 Overview (12/18/2018): Managed by Dr. Jacob Castillo [facility] Assessment & Plan (02/09/2022 7:36 AM CDT): Patient sees Dermatology every 6 months. Recommend sunscreen regularly in a big floppy had long sleeves if the patient is going to be out in the sun. Patient does have a pool. Assessment & Plan (08/05/2021 10:29 AM MACHINE LEATHER TRIMMER): HPI: Condition is stable A&P: Continue seeing dermatology every 6 months. For sunscreen regularly and a big floppy hat and long sleeves if you are going to be out in the sun Pt has a pool Assessment & Plan (01/22/2021 11:19 AM CDT): Condition is stable. Pt sees Dr. Lima in [place] every 6 months. She had a basal cell removed from her left arm September 2019 and had a Mohs procedure done. She had another basal cell removed from her face September 2020. Pt wears sunscreen regularly. Assessment & Plan (07/17/2020 3:39 PM MACHINE LEATHER TRIMMER): Patient sees Dr. Lima in [place] every 6 months. She had a basal cell removed from her left arm September 2019 and had a Mohs procedure done. Patient wear sunscreen regularly Assessment & Plan (12/25/2019 11:03 AM CDT): Pt sees Dr. Lima in [place] every 6 mo, she saw her in Sep 2019 and had basal cell removed from left arm. She has had MOHS procedures done. She wears sunscreen. Assessment & Plan (06/22/2019 10:15 AM MACHINE LEATHER TRIMMER): Pt sees Dr. Lima in [place] every 6 mo, she is due to see her now. She has had MOHS procedures done. Last one was over the summer. She wears sunscreen. Asthma due to environmental allergies 03/17/2018 Assessment & Plan (08/12/2022 12:32 PM MACHINE LEATHER TRIMMER): Has been stable, just finished up her allergy shots in July. Continues Arnuity 200 mcg 1 puff daily, Zyrtec, and Flonase prn. Assessment & Plan (02/09/2022 9:15 AM CDT): HPI: Condition is stable A&P: Discussed/ordered labs, encouraged healthy, low carbohydrate lifestyle and at least 150min/week of exercise, continue seeing Dr. Salazar skip tender, albuterol as needed, Arnuity 200 mcg 1 puff daily Please consider the albuterol as a rescue only medication. If needing the albuterol more than 2xwk, please contact office. Continue using zyrtec daily, flonase as needed and saline nose rinses Assessment & Plan (08/05/2021 10:31 AM MACHINE LEATHER TRIMMER): HPI: Condition is stable A&P: Discussed/ordered labs, encouraged healthy, low carbohydrate lifestyle and at least 150min/week of exercise, continue Seeing Dr. Salazar skip tender, albuterol as needed. Asmanex 110 mcg 1 puffs daily as controller Please consider the albuterol as a rescue only medication. If needing the albuterol more than 2xwk, please contact office. Assessment & Plan (01/22/2021 11:11 AM CDT): HPI: Condition is stable, using albuterol inhaler about once a month. A&P: Discussed/ordered labs, encouraged healthy, low carbohydrate lifestyle and at least 150min/week of exercise. Pt states she is taking a break from Asmanex inhaler for the summer per skip tender Dr. Salazar. States her albuterol inhaler is about 5 years old, but that she will get a new prescription from her skip tender in [address] Salazar. Please consider the albuterol as a rescue only medication. If needing the albuterol more than 2xwk, please contact office. Discussed with patient/parent that asthma appears to be well controlled at this time but to monitor for changes in breathing/wheezing symptoms as allergies/cold symptoms can cause an asthma flare. Contact office if pt begins with concerning asthma symptoms Assessment & Plan (07/17/2020 3:37 PM MACHINE LEATHER TRIMMER): HPI: Condition is stable A&P: Discussed/ordered labs, encouraged healthy, low carbohydrate lifestyle and at least 150min/week of exercise, continue focusing on keeping allergies under control to maintain asthma control. Patient does not use her asthma over the winter, but this year her specialist wants her on it all winter due to covid. If your needing her albuterol inhaler more than twice a week please contact my office. Assessment & Plan (12/25/2019 11:09 AM CDT): Discussed environmental controls No smoking around patient, no animals in bedroom, keep windows closed, no hanging clothes on the line Take claritin/zyrtec/jazmyne in the morning Flonase at bedtime Use the saline rinses/netipot in nose twice daily and as needed If working or playing outside, may need to do saline rinses when coming in and change clothes right away Keep the allergies under control to keep asthma controlled. If needing albuterol more than 2xwk, please call office She doesn't need her asmanex over the winter Pt on monthly allergy shots Assessment & Plan (06/22/2019 10:05 AM MACHINE LEATHER TRIMMER): Discussed environmental controls No smoking around patient, no animals in bedroom, keep windows closed, no hanging clothes on the line Take claritin/zyrtec/jazmyne in the morning Flonase at bedtime Use the saline rinses/netipot in nose twice daily and as needed If working or playing outside, may need to do saline rinses when coming in and change clothes right away Keep the allergies under control to keep asthma controlled. If needing albuterol more than 2xwk, please call office She doesn't need her asmanex over the winter Pt on monthly allergy shots Atrophic vaginitis 03/17/2018 Assessment & Plan (02/09/2022 9:14 AM CDT): HPI: Condition is stable A&P: Discussed/ordered labs, encouraged healthy, low carbohydrate lifestyle and at least 150min/week of exercise, continue on Premarin cream twice weekly, taking probiotics 20 billion daily Assessment & Plan (08/05/2021 7:54 AM MACHINE LEATHER TRIMMER): HPI: Condition is stable A&P: Discussed/ordered labs, encouraged healthy, low carbohydrate lifestyle and at least 150min/week of exercise, continue on Premarin cream twice weekly Assessment & Plan (01/22/2021 11:05 AM CDT): HPI: Condition is stable A&P: Discussed/ordered labs, encouraged healthy, low carbohydrate lifestyle and at least 150min/week of exercise, continue on Premarin cream twice weekly. Assessment & Plan (07/17/2020 1:44 PM MACHINE LEATHER TRIMMER): HPI: Condition is stable A&P: Discussed/ordered labs, encouraged healthy, low carbohydrate lifestyle and at least 150min/week of exercise, continue on Premarin cream Assessment & Plan (06/22/2019 10:13 AM MACHINE LEATHER TRIMMER): Labs ordered Condition is stable, encouraged healthy, low carbohydrate diet and at least 150min/week of exercise, continue on premarin cream 1-2 times a week as needed Vitamin D deficiency 03/17/2018 Assessment & Plan (02/10/2023 11:00 AM CDT): Vitamin D level WNL. Assessment & Plan (02/09/2022 7:36 AM CDT): HPI: Condition is stable A&P: Discussed/ordered labs, encouraged healthy, low carbohydrate lifestyle and at least 150min/week of exercise, continue on vitamin D3 6000 units daily Assessment & Plan (08/05/2021 7:54 AM MACHINE LEATHER TRIMMER): HPI: Condition is stable A&P: Discussed/ordered labs, encouraged healthy, low carbohydrate lifestyle and at least 150min/week of exercise, continue on Vitamin D3 6000 units daily Assessment & Plan (01/22/2021 11:05 AM CDT): HPI: Condition is stable A&P: Discussed/ordered labs, encouraged healthy, low carbohydrate lifestyle and at least 150min/week of exercise, continue on vitamin-D supplements 6000 units daily. Assessment & Plan (07/17/2020 3:38 PM MACHINE LEATHER TRIMMER): HPI: Condition is stable A&P: Discussed/ordered labs, encouraged healthy, low carbohydrate lifestyle and at least 150min/week of exercise, continue on vitamin-D supplements 2000units during the summer and 4000 units during the winter Assessment & Plan (12/25/2019 9:20 AM CDT): Discussed labs, Condition is worsening, encouraged healthy, low carbohydrate diet and at least 150min/week of exercise, continue on vit d supplements. Assessment & Plan (06/22/2019 10:13 AM MACHINE LEATHER TRIMMER): Discussed labs, Condition is worsening, encouraged healthy, low carbohydrate diet and at least 150min/week of exercise, continue on vit d supplements. Chronic osteoarthritis 03/17/2018 Overview (03/17/2018): Knees, fingers, wrist. Assessment & Plan (02/09/2022 9:14 AM CDT): HPI: Condition is stable A&P: Discussed/ordered labs, encouraged healthy, low carbohydrate lifestyle and at least 150min/week of exercise, continue on Tylenol arthritis as needed, patient may trial on Vital Proteins Collagen Peptides two capfuls a day to help with joints Assessment & Plan (08/05/2021 7:53 AM MACHINE LEATHER TRIMMER): HPI: Condition is stable A&P: Discussed/ordered labs, encouraged healthy, low carbohydrate lifestyle and at least 150min/week of exercise, continue on Tylenol arthritis as needed and vital protein collagen peptides 1-2 capfuls day to help with joint pain Assessment & Plan (01/22/2021 11:04 AM CDT): HPI: Condition is stable A&P: Discussed/ordered labs, encouraged healthy, low carbohydrate lifestyle and at least 150min/week of exercise, continue on Tylenol Arthritis as needed and Vital Proteins Collagen Peptides one capful a day to help with joints. Assessment & Plan (07/17/2020 1:45 PM MACHINE LEATHER TRIMMER): HPI: Condition is stable A&P: Discussed/ordered labs, encouraged healthy, low carbohydrate lifestyle and at least 150min/week of exercise, continue on Tylenol as needed patient may trial on Vital Proteins Collagen Peptides one capful a day to help with joints Assessment & Plan (12/25/2019 11:05 AM CDT): Takes tylenol if she is in too much pain, may try the tylenol arthritis as needed-this is helping. Try taking collagen powder daily-vital proteins collagen peptides Assessment & Plan (06/22/2019 10:19 AM MACHINE LEATHER TRIMMER): Takes tylenol if she is in too much pain, may try the tylenol arthritis as needed. Try taking collagen powder daily Hypertension 12/15/2013 Overview (11/05/2016): HYPERTENSION NOS Assessment & Plan (08/23/2024 11:29 AM MACHINE LEATHER TRIMMER): BP stable in office, renal function stable. Continues Amlodipine. Assessment & Plan (02/16/2024 11:31 AM CDT): BP stable in office, renal function stable. Continues Amlodipine. Assessment & Plan (08/18/2023 12:53 PM MACHINE LEATHER TRIMMER): BP stable in office, renal function stable. Continues Amlodipine. Assessment & Plan (02/10/2023 11:01 AM CDT): BP stable in office, renal function in good shape. Continues Amlodipine. Assessment & Plan (08/12/2022 12:30 PM MACHINE LEATHER TRIMMER): BP stable in office, continues Amlodipine 5 mg daily Labs ordered Assessment & Plan (02/09/2022 7:35 AM CDT): HPI: Condition is stable A&P: Discussed/ordered labs, encouraged healthy, low carbohydrate lifestyle and at least 150min/week of exercise, continue on amlodipine 5 mg daily Assessment & Plan (08/05/2021 7:51 AM MACHINE LEATHER TRIMMER): HPI: Condition is stable A&P: Discussed/ordered labs, encouraged healthy, low carbohydrate lifestyle and at least 150min/week of exercise, continue on Amlodipine 5 mg daily Assessment & Plan (01/22/2021 7:28 AM CDT): HPI: Condition is stable A&P: Discussed/ordered labs, encouraged healthy, low carbohydrate lifestyle and at least 150min/week of exercise, continue on amlodipine 5 mg daily. Assessment & Plan (07/17/2020 1:42 PM MACHINE LEATHER TRIMMER): HPI: Condition is stable A&P: Discussed/ordered labs, encouraged healthy, low carbohydrate lifestyle and at least 150min/week of exercise, continue on amlodipine 5 mg daily Assessment & Plan (12/25/2019 9:19 AM CDT): Labs ordered, Condition is stable, home bp readings are 120/70s; encouraged healthy, low carbohydrate diet and at least 150min/week of exercise, continue on amlodipine 5mg daily, no problems with it Assessment & Plan (06/22/2019 10:06 AM MACHINE LEATHER TRIMMER): Labs ordered, Condition is stable, home bp readings are 120/70s; encouraged healthy, low carbohydrate diet and at least 150min/week of exercise, continue on amlodipine 5mg daily, no problems with it Depression 12/15/2013 Overview (11/05/2016): DEPRESSIVE DISORDER NEC Assessment & Plan (08/23/2024 11:30 AM MACHINE LEATHER TRIMMER): Tried increasing to the Celexa 40 mg after 's passing but medication was too strong. Doing better since decreasing to the 20 mg again. Assessment & Plan (02/16/2024 11:31 AM CDT): Stable on Citalopram 20 mg daily, denies SI. No changes today. Assessment & Plan (02/10/2023 11:01 AM CDT): Stable on Citalopram 20 mg daily, denies SI. No changes today. Assessment & Plan (08/12/2022 12:31 PM MACHINE LEATHER TRIMMER): Stable on Citalopram, denies SI. Assessment & Plan (02/09/2022 9:12 AM CDT): Patient reiterated no suicidal thoughts at this time; take medication as directed; contact 911 and go to the ER if becomes suicidal; discussed side effects of medication with patient; encouraged healthy diet and exericise; encouraged patient to see a counselor HPI: Condition is stable , has cancer and she feels she is doing well. She is talking to her sisters and dtr. She has a 6 mo old puppy that is keeping her busy. A&P: Discussed/ordered labs, encouraged healthy, low carbohydrate lifestyle and at least 150min/week of exercise, continue on citalopram 20 mg daily Assessment & Plan (08/05/2021 7:51 AM MACHINE LEATHER TRIMMER): Patient reiterated no suicidal thoughts at this time; take medication as directed; contact 911 and go to the ER if becomes suicidal; discussed side effects of medication with patient; encouraged healthy diet and exericise; encouraged patient to see a counselor HPI: Condition is stable A&P: Discussed/ordered labs, encouraged healthy, low carbohydrate lifestyle and at least 150min/week of exercise, continue on Citalopram 20 mg daily Assessment & Plan (01/22/2021 7:27 AM CDT): Patient reiterated no suicidal thoughts at this time; take medication as directed; contact 911 and go to the ER if becomes suicidal; discussed side effects of medication with patient; encouraged healthy diet and exericise; encouraged patient to see a counselor HPI: Condition is stable A&P: Discussed/ordered labs, encouraged healthy, low carbohydrate lifestyle and at least 150min/week of exercise, continue on Celexa 20 mg daily. Assessment & Plan (07/17/2020 1:42 PM MACHINE LEATHER TRIMMER): Patient reiterated no suicidal thoughts at this time; take medication as directed; contact 911 and go to the ER if becomes suicidal; discussed side effects of medication with patient; encouraged healthy diet and exericise; encouraged patient to see a counselor HPI: Condition is stable A&P: Discussed/ordered labs, encouraged healthy, low carbohydrate lifestyle and at least 150min/week of exercise, continue on Celexa 20 mg daily Assessment & Plan (12/25/2019 10:58 AM CDT): Labs ordered, Condition is stable, encouraged healthy, low carbohydrate diet and at least 150min/week of exercise, continue on celexa 20mg daily. She says she is doing fine on 20mg. Assessment & Plan (06/22/2019 10:16 AM MACHINE LEATHER TRIMMER): Labs ordered, Condition is stable, encouraged healthy, low carbohydrate diet and at least 150min/week of exercise, continue on celexa 20mg daily Resolved Problems Problem Noted Date Diagnosed Date Resolved Date Treatment refusal 03/29/2018 06/20/2018 Overview (03/29/2018): Patient refused medication for elevated cholesterol Encounters Date Type Department Care Team Description 08/23/2024 11:00 AM MACHINE LEATHER TRIMMER Office Visit [facility] Primary Care at [address] [address] Nelia Hager, [place] Medicare annual wellness visit, subsequent (Primary Dx); Mild episode of recurrent major depressive disorder; Primary hypertension; Mixed hyperlipidemia; Rash of face; Hx of diverticulitis of colon; Vitamin D deficiency 08/17/2024 10:05 AM MACHINE LEATHER TRIMMER Lab [facility] [address] [place] [address] Encounter for screening examination for impaired glucose regulation and diabetes mellitus; Vitamin D deficiency; Primary hypertension; Mixed hyperlipidemia from Last 3 Months Immunizations Immunization Administration Dates Next Due Influenza, Quadrivalent, Isa l Culture-based MDCK, Antibiotic Free, Intramuscular 05/05/2020 Influenza, Quadrivalent, Hig h Dose, Preservative Free, Intrr 05/06/2022,05/15/2021,05/13/2020 Influenza, Trivalent, High D ose, Split, Preservative Free, Intramuscular 05/23/2019,05/04/2018 05/04/2019 Influenza, Unspecified 05/27/2023,2022(Deferred: Patient Refused),08/01/2022(Deferred: Patient Refused),08/01/2021(Deferred: Patient Refused) Pfizer SARS-CoV-2 Monovalent Vaccination (12+ Yrs) PURPLE 04/28/2021,04/27/2021,09/19/2020,08/02 Pneumococcal Conjugate PCV 13 06/22/2019 Pneumococcal Polysaccharide PPV23 03/17/2018 Td, adsorbed 06/22/2019 Surgical History Surgery Date Site/Laterality Comments CATARACT EXTRACTION TUBAL LIGATION Medical History Medical History Date Comments Depression Depression Hypertension Hypertension Hx Other Medical diverticulosis Sleep apnea GERD (gastroesophageal reflux disease) Anxiety Arthritis Asthma Chronic bronchitis (HCC) Family History Medical History Relation Name Comments Heart disease Father Sanjay Heart disease; Cause of : Heart disease Hypertension Father Sanjay Arthritis Mother Bea Asthma Mother Bea Coronary artery disease Mother Bea Fanny nary artery disease; Diabetes Mother Bea Diabetes type II Mother Bea Diabetes -T ype 2; Hyperlipidemia Mother Bea Hyperlipidemi a; Hypertension Mother Bea Hypertension; Other Mother Bea Alive and well; Heart failure Other 2 Family history of Congestive heart failure; Cause of : Family history of Congestive heart failure Breast cancer Paternal Grandmother Fibromyalgia Sister Fibromyalgia; Ovarian cancer Neg Hx Thyroid cancer Neg Hx Relation Name Status Comments Father Sanjay (Age 73) Mother Bea Alive Other 1 (Age 73) Other 2 Paternal Grandmother Sister Social History Tobacco Use Types Packs/Day Years Used Date Smoking Tobacco: Former Cigarettes Passive Smoke Exposure: Past Smokeless Tobacco: Never Tobacco Cessation:Counseling Given: Not Answered Alcohol Use Standard Drinks/Week Comments Yes 0 [...] often do you attend chur ch or moravian services? Never 07/21/2020 Do you belong to any clubs o r organizations such as muslim groups, unions, fraternal or athletic groups, or [...] points, staff should administer the PHQ-9) 0 08/17/2024 [facility] - Occupational Stress Questionnaire Answer Date [...] on file Legal Sex Female 2:34 PM MACHINE LEATHER TRIMMER Gender Identity Female 06/21/2019 9:01 AM MACHINE LEATHER TRIMMER Sexual Orientation Straight 06/21/2019 9: 01 AM MACHINE LEATHER TRIMMER Obstetrics History Para Term AB IAB SAB Ectopic Multiple Livin g Live Births 1 1 1 Date Outcome GA Total Labor Labor/2nd/3rd Weight Sex Type Anes PTL Kayla A1 A5 Name Clin Term Last Filed Vital Signs Vital Sign Reading Time Taken Comments Blood Pressure 130/70 08/23/2024 10:51 AM MACHINE LEATHER TRIMMER Pulse 87 08/23/2024 10:51 AM MACHINE LEATHER TRIMMER Temperature 36.6 C (97.8 F) 08/23/2024 10:51 AM MACHINE LEATHER TRIMMER Respiratory Rate 18 08/18/2023 10:47 AM MACHINE LEATHER TRIMMER Oxygen Saturation 95% 08/23/2024 10:51 AM MACHINE LEATHER TRIMMER Inhaled Oxygen Concentration - - Weight 95.7 kg (211 lb) 08/23/2024 10:51 AM MACHINE LEATHER TRIMMER Height 157.5 cm (5' 2 ) 08/23/2024 10:51 AM MACHINE LEATHER TRIMMER Body Mass Index 38.59 08/23/2024 10:51 AM MACHINE LEATHER TRIMMER Plan of Treatment Health Maintenance Due Date Last Done Comments Hepatitis B Screening 1971 Zoster Vaccine (1 of 2) 2003 Covid-19 Vaccine ( season) 2024 05/25/2023, 04/15/2022, 04/28/2021, Additional history exists Breast Cancer Screening-Mammogram 07/13/2025 07/13/2024, 06/29/2023, 03/16/2022, Additional history exists Depression Screening 08/23/2025 08/23/2024, 02/16/2024, 11/23/2023, Additional history exists Fall Risk Assessment 08/23/2025 08/23/2024, 02/16/2024, 11/23/2023, Additional history exists Osteoporosis Screening-Bone Density Scan 08/23/2025 08/23/2023, 07/08/2021, 07/10/2019 Well Visit 65+ 08/23/2025 08/23/2024, 02/0 03/2022, 07/21/2020, Additional history exists Colon Cancer Screening-DNA Stool 02/17/2026 02/17/2023, 03/27/2018, 03/27/2018 DTaP/Tdap/Td Vaccine (1 - Tdap) 09/01/2028 06/22/2019 Postponed from 06/23/2019 (Insurance / Financial) Colon Cancer Screening-CT Colonography Discontinued 03/27/2018 Colon Cancer Screening-Colonoscopy Discontinued 03/27/2018 Colon Cancer Screening-Sigmoidoscopy Discontinued 03/27/2018 Hepatitis C Screening Completed 06/22/2019 Pneumococcal vaccine 65+ Completed 06/22/2019, 03/01 Colon Cancer Screening-FIT Discontinued 02/17, 03/27/2018, 03/27/2018 Influenza Vaccine Completed 05/04/2024, , 05/25/2023, Additional history exists Procedures Procedure Name Priority Date/Time Associated Diagnosis Comments EGFR Routine 08/17/2024 11:28 AM MACHINE LEATHER TRIMMER Primary hypertension Mixed hyperlipidemia DIFFERENTIAL AUTO Routine 08/17/2024 11:28 AM MACHINE LEATHER TRIMMER Primary hypertension Mixed hyperlipidemia COMPREHENSIVE METABOLIC PANEL Routine 08/17/2024 11:28 AM MACHINE LEATHER TRIMMER Primary hypertension Mixed hyperlipidemia CBC WITH AUTO DIFFERENTIAL Routine 08/17/2024 11:28 AM MACHINE LEATHER TRIMMER Primary hypertension Mixed hyperlipidemia LIPID PANEL Routine 08/17/2024 11:28 AM MACHINE LEATHER TRIMMER Primary hypertension Mixed hyperlipidemia THYROID FUNCTION CASCADE Routine 08/17/2024 11:28 AM MACHINE LEATHER TRIMMER Primary hypertension VITAMIN D 25 HYDROXY Routine 08/17/2024 11:28 AM MACHINE LEATHER TRIMMER Vitamin D deficiency HEMOGLOBIN A1C Routine 08/17/2024 11:28 AM MACHINE LEATHER TRIMMER Encounter for screening examination for impaired glucose regulation and diabetes mellitus SCREENING MAMMOGRAM BILATERAL W JERZY Schedule Routine, Read Routine (OP Routine) 07/13/2024 3:45 PM MACHINE LEATHER TRIMMER Screening mammogram, encounter for DEXA AXIAL SKELETON BONE DENSITY 1 OR MORE SITES Schedule Routine, Read Routine (OP Routine) 08/23/2023 2:07 PM MACHINE LEATHER TRIMMER Encounter for osteoporosis screening in asymptomatic postmenopausal patient STOOL DNA COLOGUARD Routine 02/17/2023 8:00 AM CDT Colon cancer screening HEPATITIS C ANTIBODY Routine 06/22/2019 11:12 AM MACHINE LEATHER TRIMMER Essential hypertension Mixed hyperlipidemia Vitamin D deficiency Encounter for hepatitis C screening test for low risk patient HM COLONOSCOPY Routine 03/27/2018 from Last 3 Months or Most Recently Relevant to Health Maintenance Results * eGFR (08/17/2024 11:28 AM MACHINE LEATHER TRIMMER) Pathologist [facility] eGFR 64 >=60 mL/min/1. 73 m2 Comment: Interpretive Data Reference Interval Normal >/= 90 mL/min/1.73m2 Mildly decreased* 60 - 89 mL/min/1.73m2 Mildly to moderately decreased 45 - 59 mL/min/1.73m2 Moderately to severely decreased 30 - 44 mL/min/1.73m2 Severely decreased 15 - 29 mL/min/1.73m2 Kidney Failure < 15 mL/min/1.73m2 *Relative to young adult level Estimated glomerular filtration rate is determined by the 2020 CKD-EPI equation recommended by the National Kidney Foundation (A Unifying Approach to GFR Estimation: Recommendations of the NKF-ASK Task Force on Reassessing the Inclusion of Race in Diagnosing Kidney Disease, JASN 2020). The CKD-EPI equation should not be used for patients with unstable renal function and has not been validated in children and those over 70. Current interpretive data was last reviewed 2021. Testing performed by: [address] [address] Blood 08/17/2024 11:2 8 AM MACHINE LEATHER TRIMMER 08/17/2024 6:21 PM MACHINE LEATHER TRIMMER us Nelia Hager SELF CONTAINED BEH[employer]IOR [employer]IT TEACHER LAB BLOOD ORDERABLES Final Resul t GELY KHOURY ([place]) 1 [facility] Department [place] [address] * Differential, auto (08/17/2024 11:28 AM MACHINE LEATHER TRIMMER) Neutrophil abs 5.5 1.5 - 6.5 K/cumm Comment:Testing performed by : [address] [address] Imm gran abs 0.0 0.0 - 0.1 K/cumm [facility] ([place]) Comment:Testing performed by : [address], [address] Lymphocyte abs 2.1 0.8 - 3.3 K/cumm [facility] ([place]) Comment:Testing performed by : [address], [address] Monocyte abs 0.5 0.2 - 0.8 K/cumm [facility] ([place]) Comment:Testing performed by : [address], [address] Eosinophil abs 0.0 0.0 - 0.5 K/cumm [facility] ([place]) Comment:Testing performed by : [address], [place]., [address] Basophil abs 0.1 0.0 - 0.1 K/cumm [facility] ([place]) Comment:Testing performed by : [address] [address] Neutrophil pct 66.7 % [facility] ([place]) Comment: Interpretive Data Percent cell count reference ranges are not reported, since discordance with absolute values may lead to misinterpretation of CBC data. Current Interpretive Data was last revised on 2017. Testing performed by: [facility], [address] [place] [address]., [address] Imm gran pct 0.4 % [facility] ([place]) Comment: Interpretive Data Percent cell count reference ranges are not reported, since discordance with absolute values may lead to misinterpretation of CBC data. Current Interpretive Data was last revised on 2017. Testing performed by: [address] [address] Lymphocyte pct 25.5 % [facility] ([place]) Comment: Interpretive Data Percent cell count reference ranges are not reported, since discordance with absolute values may lead to misinterpretation of CBC data. Current Interpretive Data was last revised on 2017. Testing performed by: [address] [address] Monocyte pct 6.3 % [facility] ([place]) Comment: Interpretive Data Percent cell count reference ranges are not reported, since discordance with absolute values may lead to misinterpretation of CBC data. Current Interpretive Data was last revised on 2017. Testing performed by: [address] [address] Eosinophil pct 0.4 % [facility] ([place]) Comment: Interpretive Data Percent cell count reference ranges are not reported, since discordance with absolute values may lead to misinterpretation of CBC data. Current Interpretive Data was last revised on 2017. Testing performed by: [address] [address] Basophil pct 0.7 % [facility] ([place]) Comment: Interpretive Data Percent cell count reference ranges are not reported, since discordance with absolute values may lead to misinterpretation of CBC data. Current Interpretive Data was last revised on 2017. Testing performed by: [facility], [address] [place] [address]., [id number] Blood 08/17/2024 11:2 8 AM MACHINE LEATHER TRIMMER 08/17/2024 5:49 PM MACHINE LEATHER TRIMMER us Nelia Hager [employer]EL[employer]TAIN[employer] TEACHER LAB BLOOD ORDERABLES Final Resul t Performing Organization Address City/[facility]/ZIP Co de Phone Number GELY KHOURY ([place]) 1 [facility] Department [place] [address] * Thyroid Function [place] (08/17/2024 11:28 AM MACHINE LEATHER TRIMMER) TSH 1.37 0.30 - 4.20 mcIUnit/mL Comment:Testing performed by : [address] [address] Blood 08/17/2024 11:2 8 AM MACHINE LEATHER TRIMMER 08/17/2024 5:49 PM MACHINE LEATHER TRIMMER us Nelia Hager SEL[employer] CONTAINED [employer]IOR [employer]IT TEACHER LAB BLOOD ORDERABLES Final Resul t Performing Organization Address [facility] Co de Phone Number GELY KHOURY ([place]) 1 [facility] [employer] [place] [address] * (ABNORMAL) CBC with auto differential (08/17/2024 11:28 AM MACHINE LEATHER TRIMMER) WBC 8.2 3.8 - 9.9 K/cumm Comment:Testing performed by : [address] [address] Hgb 13.5 11.9 - 15.5 g/dL [facility] ([place]) Comment:Testing performed by : [address] [address] Hct 44.7 35.6 - 45.5 % [facility] ([place]) Comment:Testing performed by : [address] [address] Plt 288 150 - 400 K/cumm [facility] ([place]) Comment:Testing performed by : [address] [address] MPV 9.4 9.1 - 12.3 fL [facility] ([place]) Comment:Testing performed by : [facility], [address] [place] [address], [address] RBC 4.65 3.90 - 5.20 M/cumm [facility] ([place]) Comment:Testing performed by : [facility], [address] [place] [address], [address] MCV 96.1 81.3 - 96.4 fL [facility] ([place]) Comment:Testing performed by : [facility], [address] [place] [address], [address] MCH 29.0 27.1 - 33.3 pg [facility] ([place]) Comment:Testing performed by : [facility], [address] [place] [address], [address] MCHC 30.2(L) 32.3 - 35.7 g/dL [facility] ([place]) Comment:Testing performed by : [address], [address] RDW CV 13.4 11.1 - 14.9 % [facility] ([place]) Comment:Testing performed by : [address], [address] RDW SD 47.5 35.7 - 48.1 fL [facility] ([place]) Comment:Testing performed by : [address], [address] NRBC abs 0.00 0.00 - 0.01 K/cumm [facility] ([place]) Comment:Testing performed by : [address], [address] Blood 08/17/2024 11:2 8 AM MACHINE LEATHER TRIMMER 08/17/2024 5:49 PM MACHINE LEATHER TRIMMER us Nelia Hager NP LAB BLOOD ORDERABLES Final Resul t [facility] ([place]) 1 [facility] Department [place] [address] * Vitamin D 25 hydroxy (08/17/2024 11:28 AM MACHINE LEATHER TRIMMER) Vitamin D 25-OH 49 30 - 80 ng/mL Comment:Testing performed by : [facility], [address] [place] [address]., [id number] Blood 08/17/2024 11:2 8 AM MACHINE LEATHER TRIMMER 08/17/2024 5:49 PM MACHINE LEATHER TRIMMER us Nelia Hager SELF CONTAINED [employer]IOR [employer] TEACHER LAB BLOOD ORDERABLES Final Resul t Performing Organization Address [facility] de Phone Number GELY KHOURY ([place]) 1 [facility] [employer] [place] [address] * Hemoglobin A1c (08/17/2024 11:28 AM MACHINE LEATHER TRIMMER) Hgb A1C 5.6 4.0 - 5.6 % Comment:Testing performed by : [facility], [address] [place] [address]., [address] Estimated Average Glucose 114 mg/dL GELY KHOURY ([place]) Comment: The ADA recommends reporting an estimated Average Glucose (eAG) with all Hemoglobin A1c results using the equation derived from a study of 507 normal and diabetic adults. Minority populations were underrepresented and children were not included. (Diabetes Care 31:2479-1177, 2008). The eAG is not equivalent to a fasting glucose. Testing performed by: [facility], [address] [place] [address]., [id number] Blood 08/17/2024 11:2 8 AM MACHINE LEATHER TRIMMER 08/17/2024 5:49 PM MACHINE LEATHER TRIMMER us Nelia Hager NP LAB BLOOD ORDERABLES Final Resul t Performing Organization Address [facility] Co de Phone Number GELY KHOURY (COR[place]) 1 [facility] [place] [address] * Lipid panel (08/17/2024 11:28 AM MACHINE LEATHER TRIMMER) Cholesterol 156 30 - 199 mg/dL Comment: Interpretive Data Ages < or = 19 years Acceptable: <170 mg/dL Borderline high: 170-199 mg/dL High: >or= 200 mg/dL Ages > or = 20 years Desirable: <200 mg/dL Borderline high: 200-239 mg/dL High: >or= 240 mg/dL Literature References: 1. Expert Panel on Integrated Guidelines for Cardiovascular Health and Risk Reduction in Children and Adolescents. Pediatrics 2011;128:S213 2. NCEP Expert Panel. Circulation 2004;110:227 Current Interpretive Data was last revised on 2018. Testing performed by: [facility], [address] [place] [address]., [id number] Triglycerides 132 <=149 mg/dL [facility] ([place]) Comment: Interpretive Data Ages < or = 9 years Acceptable: <75 mg/dL Borderline high: 75-99 mg/dL High: >or= 100 mg/dL Ages 10 to 20 years Acceptable: <90 mg/dL Borderline high: 90-129 mg/dL High: >or= 130 mg/dL Ages > or = 20 years Desirable: <150 mg/dL Borderline high: 150-199 mg/dL High: 200-499 mg/dL Very high: >or= 499 mg/dL Literature References: 1. Expert Panel on Integrated Guidelines for Cardiovascular Health and Risk Reduction in Children and Adolescents. Pediatrics 2011;128:S213 2. NCEP Expert Panel. Circulation 2004;110:227 Current Interpretive Data was last revised on 2018. Testing performed by: [facility], [address] [place] [address]., [address] HDL 56 >=40 mg/dL GELY BARTON H ([place]) Comment: Interpretive Data Ages < or = 19 years Acceptable: >45 mg/dL Borderline low: 40-45 mg/dL Low: <40 mg/dL Ages > or = 20 years Desirable: >or= 60 mg/dL Low: <40 mg/dL Literature References: 1. Expert Panel on Integrated Guidelines for Cardiovascular Health and Risk Reduction in Children and Adolescents. Pediatrics 2011;128:S213 2. NCEP Expert Panel. Circulation 2004;110:227 Current Interpretive Data was last revised on 2018. Testing performed by: [facility], [address] [place] [address]., [address] LDL, calculated 77 <=129 mg/dL CERANAHY [facility] ([place]) Comment: Interpretive Data Ages < or = 19 years Acceptable: <110 mg/dL Borderline high: 110-129 mg/dL High: >or= 130 mg/dL Ages > or = 20 years Optimal: <100 mg/dL Near optimal: 100-129 mg/dL Borderline high: 130-159 mg/dL High: >160 mg/dL Calculated using the Vitor LDL-C estimating equation. This equation was implemented on 2024. Prior to this date LDL-C was estimated using the Friedewald equation. Literature References: 1. Expert Panel on Integrated Guidelines for Cardiovascular Health and Risk Reduction in Children and Adolescents. Pediatrics 2011;128:S213 2. NCEP Expert Panel. Circulation 2004;110:227 3. Vitor Waddell et al. JAYESH Cardiol. 2020 November 29;5(5):540-548. doi: 10.1001/jamacardio.2020.0013 Current Interpretive Data was last revised on 2024. Testing performed by: [address] [address] Non-HDL Cholesterol 100 mg/dL GELY KHOURY ([place]) Comment: Interpretive Data Ages < or = 19 years Acceptable: <120 mg/dL Borderline high: 120-144 mg/dL High: >145 mg/dL Ages > or = 20 years When triglycerides are >200 mg/dL, Non-HDL cholesterol is a secondary target of therapy with treatment goals that are 30 mg/dL greater than the LDL cholesterol target. Literature References: 1. Expert Panel on Integrated Guidelines for Cardiovascular Health and Risk Reduction in Children and Adolescents. Pediatrics 2011;128:S213 2. NCEP Expert Panel. Circulation 2004;110:227 Current Interpretive Data was last revised on 2018. Testing performed by: [address] [address] Chol/HDL ratio 3 BONITA KHOURY ([place]) Comment:Testing performed by : [facility], [address] [place] [address]., [address] Blood 08/17/2024 11:2 8 AM MACHINE LEATHER TRIMMER 08/17/2024 5:49 PM MACHINE LEATHER TRIMMER us Nelia Hager NP LAB BLOOD ORDERABLES Final Resul t GELY KHOURY ([place]) 1 [facility] Department [place] [address] * Comprehensive metabolic panel (08/17/2024 11:28 AM MACHINE LEATHER TRIMMER) Sodium 140 135 - 145 mmol/L Comment:Testing performed by : [facility], [address] [place] [address]., [address] Potassium, pl 4.2 3.3 - 4.9 mmol/L [facility] ([place]) Comment:Testing performed by : [facility], [address] [place] [address]., [address] Chloride 104 97 - 110 mmol/L [facility] ([place]) Comment:Testing performed by : [facility], [address] [place] [address]., [address] CO2 25 22 - 32 mmol/L [facility] ([place]) Comment:Testing performed by : [address] [address] Anion gap 11 2 - 15 mmol/L [facility] ([place]) Comment:Testing performed by : [facility], [address] [place] [address]., [address] BUN 10 6 - 25 mg/dL [facility] ([place]) Comment:Testing performed by : [address] [address] Creatinine 0.95 0.60 - 1.10 mg/dL [facility] ([place]) Comment:Testing performed by : [address] [address] Glucose 97 70 - 199 mg/dL [facility] ([place]) Comment: Interpretive Data Fasting glucose >/= 126 mg/dl is diagnostic for diabetes. Fasting is defined as no caloric intake for at least 8 hours. Fasting glucose between 100 mg/dl to 125 mg/dl is diagnostic of prediabetes. In a patient with classic symptoms of hyperglycemia or hyperglycemic crisis, a random glucose >/= 200 mg/dl is diagnostic for diabetes. In the absence of unequivocal hyperglycemia, results should be confirmed by repeat testing. The classification and Diagnosis of Diabetes Diabetes Care 202; 46: S19-S40. Current interpretive data was last revised 2022. Testing performed by: [facility], [address] [place] [address]., [address] Calcium 9.3 8.5 - 10.3 mg/dL [facility] ([place]) Comment:Testing performed by : [address] [address] Bilirubin, total 1.1 0.1 - 1.2 mg/dL [facility] ([place]) Comment:Testing performed by : [facility], [address] [place] [address]., [address] Protein, pl 6.6 6.5 - 8.5 g/dL [facility] ([place]) Comment:Testing performed by : [facility], [address] [place] [address]., [address] Albumin 4.0 3.5 - 5.0 g/dL [facility] ([place]) Comment:Testing performed by : [facility], [address] [place] [address]., [address] Alk phos 95 40 - 130 Units/L [facility] ([place]) Comment:Testing performed by : [facility], [address] [place] [address], [id number] ALT 14 7 - 45 Units/L [facility] ([place]) Comment:Testing performed by : [facility], [address] [place] [address], [id number] AST 22 10 - 45 Units/L [facility] ([place]) Comment:Testing performed by : [facility], [address] [place] [address]., [address] Blood 08/17/2024 11:2 8 AM MACHINE LEATHER TRIMMER 08/17/2024 5:49 PM MACHINE LEATHER TRIMMER Nelia Hager NP LAB BLOOD ORDERABLES Final Resul t [facility] 1 [facility] Department [place] [address] * Screening Mammogram Bilateral W Jerzy (07/13/2024 3:45 PM MACHINE LEATHER TRIMMER) Anatomical Region Laterality Modality Breast Bilateral Mammography 07/13/2024 4:34 PM MACHINE LEATHER TRIMMER Impressions 07/13/2024 4:34 PM MACHINE LEATHER TRIMMER There is no mammographic evidence of malignancy. A 1 year screening mammogram is recommended. BI-RADS: 1 - Negative. The patient has been or will be contacted. The patient will be entered into a reminder system with a target due date of 1 year for her next mammogram. Electronically signed by: Nadia Potter M.D. Narrative 07/13/2024 4:34 PM MACHINE LEATHER TRIMMER EXAMINATION: SCREENING MAMMOGRAM BILATERAL W JERZY ORDERING HEALTHCARE PROVIDER: SELF SCREENING MAMMOGRAM HISTORY: Routine screening mammography. COMPARISON: 06/29/2023, 03/16/2022, 01/29/2021, 01/17/2020 TECHNIQUE: CC and MLO views of the bilateral breasts were obtained with digital technique using breast tomosynthesis with C view. Computer aided detection was utilized. FINDINGS: DENSITY: The breasts are almost entirely fatty. BREASTS: There are no suspicious masses, suspicious calcifications, or other suspicious findings in either breast. There has been no suspicious interval change. us Self Screening Mammogram IMG MAMMO PROCEDURES Fi nal Result * Dexa Axial Skeleton Bone Density 1 or 2 Site (08/23/2023 2:07 PM MACHINE LEATHER TRIMMER) Anatomical Region Laterality Modality Body N/A Other 08/23/2023 7:50 PM MACHINE LEATHER TRIMMER Narrative 08/23/2023 7:52 PM MACHINE LEATHER TRIMMER EXAM DESCRIPTION: DEXA AXIAL SKELETON BONE DENSITY 1 OR MORE SITES REASON FOR STUDY: 68 y/o year old F with given history of: Bone density Screening. Postmenopausal Planning Analyst/Model: [employer] Discovery SL (S/N [id number]) CLINICAL INFORMATION: Current height: 63 inches Maximum height: 63 inches Weight: 215 pounds Risk factors: Postmenopausal, asthma or emphysema COMPARISON: 07/08/2021 Dissimilar scan types or analysis methods precludes assessment for calculating a significant change. FINDINGS: AP LUMBAR SPINE L1-L4: Total BMD is 1.077 g/cm2 T-score is 0.3 LEFT HIP: Total BMD is 0.933 g/cm2 T-score is -0.1 Femoral neck BMD is 0.771 g/cm2 T-score is -0.7 FRAX: FRAX not reported due to T-scores of hip, femoral neck and/or spine being at or above -1.0 (Normal). IMPRESSION: Normal bone mass. REFERENCE: Bone mineral density: Normal (T-score above or = -1.0) Low bone mass (T-score between -1.0 and -2.5) replaces the previously used term osteopenia Osteoporosis (T-score = or below -2.5) Please see below follow up recommendations. Medical evaluation for secondary causes of low bone mineral density may be appropriate. FRAX is a World Health Organization validated fracture risk assessment tool that calculates a person's 10 year probability of a major osteoporosis related fracture and hip fracture. According to the National Osteoporosis Foundation guidelines, postmenopausal women and men age 50 or older with low bone mass and a 10 year probability of a major osteoporosis related fracture = or greater than 20% or a 10 year probability of a hip fracture = or greater than 3% should be considered for pharmacological treatment for the prevention of osteoporosis. For further information, including treatment recommendations, please refer to the 2019 ISCD Official Positions (http://www.iscd.org) and the NOF's Clinician's Guide to Prevention and Treatment of Osteoporosis (http://www.nof.org/professionals/clinical-guidelines) THIS IS AN ELECTRONICALLY VERIFIED FINAL REPORT 08/23/2023 7:52 PM - Electronically signed by Jimbo Brooks M.D. MF: NYASIA Report ID: [id number] Reading Location: [id number] Procedure Note Jimbo Brooks MD - 08/23/2023 EXAM DESCRIPTION: DEXA AXIAL SKELETON BONE DENSITY 1 OR MORE SITES REASON FOR STUDY: 68 y/o year old F with given history of: Bonedensity Screening. Postmenopausal Planning Analyst/Model: [employer] Discovery SL (S/N [id number]) CLINICAL INFORMATION: Current height: 63 inches Maximum height: 63 inches Weight: 215 pounds Risk factors: Postmenopausal, asthma or emphysema COMPARISON: 07/08/2021 Dissimilar scan types or analysis methods precludes assessment for calculating a significant change. FINDINGS: AP LUMBAR SPINE L1-L4: Total BMD is 1.077 g/cm2 T-score is 0.3 LEFT HIP: Total BMD is 0.933 g/cm2 T-score is -0.1 Femoral neck BMD is 0.771 g/cm2 T-score is -0.7 FRAX: FRAX not reported due to T-scores of hip, femoral neck and/or spine beingat or above -1.0 (Normal). IMPRESSION: Normal bone mass. REFERENCE: Bone mineral density: Normal (T-score above or = -1.0) Low bone mass (T-score between -1.0 and -2.5) replaces thepreviously used term osteopenia Osteoporosis (T-score = or below -2.5) Please see below follow up recommendations. Medical evaluation forsecondary causes of low bone mineral density may be appropriate. FRAX is a World Health Organization validated fracture risk assessmenttool that calculates a person's 10 year probability of a major osteoporosisrelated fracture and hip fracture. According to the National OsteoporosisFoundation guidelines, postmenopausal women and men age 50 or older with low bonemass and a 10 year probability of a major osteoporosis related fracture = or greater than 20% or a 10 year probability of a hip fracture = or greaterthan 3% should be considered for pharmacological treatment for the preventionof osteoporosis. For further information, including treatment recommendations, please referto the 2019 ISCD Official Positions (http://www.iscd.org) and the NOF's Clinician's Guide to Prevention and Treatment of Osteoporosis (http://www.nof.org/professionals/clinical-guidelines) THIS IS AN ELECTRONICALLY VERIFIED FINAL REPORT 08/23/2023 7:52 PM - Electronically signed by Jimbo Brooks M.D. MF: NYASIA Report ID: [id number] Reading Location: [place] [address] Nelia Hager NP IMG DXA PROCEDURES Final Result * Stool DNA - Cologuard (02/17/2023 8:00 AM CDT) [facility] Stool DNA - Cologuard Negative Negative [facility] (CLIA #:[id number]) Comment: NEGATIVE TEST RESULT. A negative Cologuard result indicates a low likelihood that a colorectal cancer (CRC) or advanced adenoma (adenomatous polyps with more advanced pre-malignant features) is present. The chance that a person with a negative Cologuard test has a colorectal cancer is less than 1 in 1500 (negative predictive value >99.9%) or has an advanced adenoma is less than 5.3% (negative predictive value 94.7%). These data are based on a prospective cross-sectional study of 10,000 individuals at average risk for colorectal cancer who were screened with both Cologuard and colonoscopy. (Rajesh Escudero al, N Engl J Med 2014;370(14):0732-2913) The normal value (reference range) for this assay is negative. COLOGUARD RE-SCREENING RECOMMENDATION: Periodic colorectal cancer screening is an important part of preventive healthcare for asymptomatic individuals at average risk for colorectal cancer. Following a negative Cologuard result, the [place]ron[place] Cancer Society and U.S. Multi-Society Task Force screening guidelines recommend a Cologuard re-screening interval of 3 years. References: [place]esian Cancer Society Guideline for Colorectal Cancer Screening: https://www.cancer.org/cancer/pfmff-drzqze-tidpvo/amvwbzgvq-erjnhjszq-ucaabff/ac s-rec ommendations.html.; David DK, Tiffanie VELASCO, [place] CostaK, Colorectal Cancer Screening: Recommendations for Physicians and Patients from the U.S. Multi-Society Task Force on Colorectal Cancer Screening , Am J Gastroenterology 2017; 112:1664-4920. TEST DESCRIPTION: Composite algorithmic analysis of stool DNA-biomarkers with hemoglobin immunoassay. Quantitative values of individual biomarkers are not reportable and are not associated with individual biomarker result reference ranges. Cologuard is intended for colorectal cancer screening of adults of either sex, 45 years or older, who are at average-risk for colorectal cancer (CRC). Cologuard has been approved for use by the U.S. FDA. The performance of Cologuard was established in a cross sectional study of average-risk adults aged 50-84. Cologuard performance in patients ages 45 to 49 years was estimated by sub-group analysis of near-age groups. Colonoscopies performed for a positive result may find as the most clinically significant lesion: colorectal cancer [4.0%], advanced adenoma (including sessile serrated polyps greater than or equal to 1cm diameter) [20%] or non- advanced adenoma [31%]; or no colorectal neoplasia [45%]. These estimates are derived from a prospective cross-sectional screening study of 10,000 individuals at average risk for colorectal cancer who were screened with both Cologuard and colonoscopy. (Rajesh Paul, N Engl J Med 2014;370(14):2839-7008.) Cologuard may produce a false negative or false positive result (no colorectal cancer or precancerous polyp present at colonoscopy follow up). A negative Cologuard test result does not guarantee the absence of CRC or advanced adenoma (pre-cancer). The current Cologuard screening interval is every 3 years. ([place]ronesian Cancer Society and U.S. Multi-Society Task Force). Cologuard performance data in a 10,000 patient pivotal study using colonoscopy as the reference method can be accessed at the following location: www.[employer]/results. Additional description of the Cologuard test process, warnings and precautions can be found at www.cologValkeerd.com. Stool 02/17/2023 8:00 AM CDT 02/18/2023 5:37 PM CDT Nelia Hager NP LAB BODY FLUIDS AND STOOLS ORDER HONORIO Final Result Performing Organization Address [facility] Co de Phone Number [facility] (CLIA #:[id number]) [place] [address] * Hepatitis C antibody (06/22/2019 11:12 AM MACHINE LEATHER TRIMMER) Hep C Ab Negative Negative GELY KHOURY ([place]) Comment:Testing performed by : [facility], [address] [place] [address], [facility] Blood specimen (specimen) 06/22/2019 11:12 AM MACHINE LEATHER TRIMMER 06/22/2019 7:18 PM MACHINE LEATHER TRIMMER Magalis Morales NP LAB MICROBIOLOGY - GENERAL ORDERABLES Edited Result - Final GELY KHOURY ([place]) 1 [facility] Department [place] [address] * COLONOSCOPY (03/27/2018) Colonoscopy Normal Comment:Cologuard Historical Provider HEALTH MAINTENANCE Final Result from Last 3 Months or Most Recently Relevant to Health Maintenance Insurance MEDICARE [employer] Care Teams Sap Integration Architect Relationship Specialty Start Date End Date Nelia Hager NP [address] [place] [address] PCP - General Family Medicine 06/04/22 Shruthi Salazar MD Allergy and Immunology 03/17/18 Danielle Lima DO [address] [place] [address] Referring Physician Dermatology 07/21/20
--- OUTSIDE RECORDS SUMMARY | 2024-10-16 18:39 | XMS_ITS | Encounter Summary ---
Author Organization [facility] Address [address] [place] [address] Care Team Providers Care Engine Generator Assembler Name Role Phone Unavailable Primary Care Provider Unavailabl e Encounter Details Date Type Department Care Team (Late st Contact Info) Description 09/06/2019 Lab Requisition [facility] DermPath Lab [address] [place] [id number] Danielle Lima DO [address] [facility] [address] [place] [address] Social History Tobacco Use Types Packs/Day Years Used Date Smoking Tobacco: Never Assessed Sex and Gender Information Value Date Recorded Sex Assigned at Not on file Gender Identity Not on file Sexual Orientation Not on file documented as of this encounter Plan of Treatment Not on file documented as of this encounter Procedures Procedure Name Priority Date/Time Associated Diagnosis Comments DERMATOPATHOLOGY Routine 09/05/2019 12:0 0 AM SAP PI DEVELOPER documented in this encounter Results * DERMATOPATHOLOGY (09/05/2019 12:00 AM SAP PI DEVELOPER) Case Report Dermatopathology Report Case: [id number] Authorizing Provider: Danielle Lima DO Collected: 09/05/2019 12:00 AM Ordering Location: [facility] DermPath Lab Received: 09/06/2019 10:33 AM Pathologist: Nadira Galindo MD Specimens: A) - Skin, right cheek B) - Skin, left upper arm 0 5:14 PM SAP PI DEVELOPER DERMATOPATHOLOGY LABORATORY Final Diagnosis Specimen A. 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 SKIN, left upper arm: BASAL CELL CARCINOMA, SUPERFICIAL MULTIFOCAL (C44.619) 0 5:14 PM SAP PI DEVELOPER DERMATOPATHOLOGY LABORATORY Clinical History A: Scaly pink/violaceous plaques. Dermatitis vs HAK R/O NMSC. B: R/O NMSC. 0 5:14 PM [facility] DERMATOPATHOLOGY LABORATORY Gross Description Specimen A: Received is one formalin filled container labeled with the patient's name and designated right cheek. The specimen consists of a shave measuring [id number]. Jar 0. Specimen B: Received is one formalin filled container labeled with the patient's name and designated left upper arm. The specimen consists of a shave measuring 2r5m0lt. Jar 0. 0 5:14 PM [facility] DERMATOPATHOLOGY LABORATORY Microscopic Description Specimen A. SKIN, right cheek: There are scattered dyskeratotic keratinocytes and vacuolar alteration along the basal cell layer. In addition, an underlying band-like infiltrate composed mostly of lymphocytes focally obscures the dermal-epidermal junction. COMMENT: The histologic differential diagnosis includes a lichen planus-like keratosis, if this biopsy samples a single lesion, although this entity is uncommon on the head and neck. Connective tissue disease is a possibility if this biopsy samples part of a more diffuse process. Clinical correlation is recommended. Specimen B. SKIN, left upper arm: Attached to the undersurface of the epidermis, there are small aggregates of basaloid cells with a high nuclear to cytoplasmic ratio and peripheral palisading. 0 5:14 PM [facility] DERMATOPATHOLOGY LABORATORY Disclaimer An external and internal positive and negative controls are appropriate for the histochemical, immunohistochemical and immunofluorescence stain(s) in this case (if any), except where stated explicitly. The performance characteristics of the stain(s) cited in this report were developed and its performance characteristic determined by the Dermatopathology Laboratory at [facility], directed by Dr. Rosy Galindo. These tests need not be, and therefore are not, approved by the [place] Food and Drug Administration. The tests are used for clinical purposes. Billing Codes Specimen Charges Stain Charges [id number] 1 1 0 5:14 PM [facility] DERMATOPATHOLOGY LABORATORY Embedded Images 0 5:14 PM [facility] DERMATOPATHOLOGY LABORATORY Pathology/Cytology TISSUE SPECIMEN FROM SKIN / Unknown 09/05/2019 09/06/2019 10:33 AM SAP PI DEVELOPER Miscellaneous samples (specimen) TISSUE SPECIMEN FROM SKIN / Unknown 09/05/2019 09/06/2019 10:33 AM SAP PI DEVELOPER Danielle Lima DO LAB - PATHOLOGY/C YTOLOGY ORDERABLES DERMATOPATHOLOGY LABORATORY [facility] - Department of Dermatology [address] [place] [address], 5th Floor Lab [address] [phone] documented in this encounter Visit Diagnoses Not on filedocumented in this encounter
--- OUTSIDE RECORDS SUMMARY | 2024-10-16 18:39 | XMS_ITS | Encounter Summary ---
Author Organization [facility] Address [address] [place] [address] Phone Care Team Providers Care Punch Machine Hand Name Role Phone DaphnieMagalis ackerman Beto Edwards PENSION CONSULTANT Primary Care Provi [facility] Encounter Details Date Type Department Care Team (Late st Contact Info) Description 03/12/2022 [facility]cribe [facility] [address] [place] [address] Abdulaziz Huffman MD [address] [place] [address] Pre-op testing (Primary Dx) Social History Tobacco Use Types Packs/Day Years Used Date Smoking Tobacco: Never Assessed Comments Unknown Sex and Gender Information Value Date Recorded Sex Assigned at Not on file Legal Sex Female 12:14 AM CDT Gender Identity Not on file Sexual Orientation Not on file COVID-19 Exposure Response Date Recorded In the last 10 days, have yo u been in contact with someone who was confirmed or suspected to have Coronavirus/COVID-19? No / Unsure 03/15/2022 9:54 AM CDT documented as of this encounter Plan of Treatment Not on file documented as of this encounter Results * SARS-COV-2 BY MOLECULAR (03/19/2022 11:12 AM CDT) SARSCOV2 NOT DETECTED (Referenc e Range for this test is Not Detected) [facility] ID NOW B 03/19/2022 12:07 PM CDT [facility] Comment:This test was perfor med by a MOLECULAR, NON-PCR method Other NASAL STRUCTURE / Unknown Non-Phlebotomy Collection / Unknown 03/19/2022 11:12 AM CDT 03/19/2022 11:23 AM CDT Narrative [facility] - 03/19/2022 12:07 PM CDT This test has been authorized by the FDA under an Emergency Use Authorization (EUA) only. Negative results should be treated as presumptive and, if inconsistent with clinical signs and symptoms or necessary for patient management, the patient should be tested with an alternative molecular assay. Negative results do not preclude SARS-CoV-2 infection or any other respiratory pathogen. Additional information for Clinicians can be found at: https://www.fda.gov/media/537614/download Additional information for Patients can be found at: https://www.fda.gov/media/463813/download Abdulaziz Huffman MD MICROBIOLOGY - GENERAL ORDERA BLES Final Result [facility] [address] [place] [address] documented in this encounter Visit Diagnoses Diagnosis Pre-op testing- Primary Preoperative examination, unspecified documented in this encounter Care Teams Punch Machine Hand Relationship Specialty Start Date End Date Magalis Morales NP [address] [place] [address] [place] [address] PCP - General Advanced Practice Nurse 03/19/22 documented as of this encounter
--- OUTSIDE RECORDS SUMMARY | 2024-10-16 18:39 | XMS_ITS ---
Author Organization [facility] Address [address] [place] [address] Care Team Providers Care Floorleader Name Role Phone Magalis Cole Primary Care Provider Unavail able Shruthi Salazar Unavailable [phone] REASON FOR VISIT SCIT - Traditional Schedule Allergy immunotherapy Medications Medication SIG (Take, Route, Frequency, Duration) Notes Start Date End Date Status Lipitor 10 MG 1 tab(s) orally once a day for 30 day(s) Active Norvasc 5 MG 1 tab(s) orally once a day for 30 day(s) Active CeleXA 20 MG 1 tab(s) orally once a day for 30 day(s) Active Arnuity Ellipta 100 MCG/ACT 1 puff inhaled daily for 30 days 12/22/2023 Active Arnuity Ellipta 200 MCG/ACT as directed inhaled every 24 hours for 90 days Not-Taking Vitamin D3 1000 UNIT as directed orally once a day for 30 day(s) Active ASMANEX TWISTHALER 30 DOSE 220 MCG/INH 1 PUFF(S) INHALED ONCE A DAY (IN THE EVENING) for 90 DAYS *Please review for potential replacement for e-prescription and drug interaction check* Not-Taking ZyrTEC Allergy 10 MG 1 tab(s) orally once a day Active Zetia 10 MG 1 tab(s) orally once a day for 30 day(s) Active PROBIOTIC FORMULA (BACILLUS COAGULANS) - 1 CAP(S) ORALLY ONCE A DAY *Please review for potential replacement for e-prescription and drug interaction check* Not-Taking PROAIR HFA CFC free 90 mcg/inh 2 puff(s) inhaled Q4-6 hours, PRN and per the asthma action plan for 30 day(s) Active AUVI -Q 0.3 mg 0.3 mg intramuscularly once for 1 dose(s) Active Flonase Allergy Relief 50 MCG/ACT 1 spray(s) intranasally once a day Not-Taking Pataday 0.2 % 1 gtt in each affected eye once a day for 90 days Not-Taking Auvi-Q 0.3 MG/0.3ML 0.3 mg intramuscularly once for 1 dose(s) Active SIT (TRADITIONAL) variable per schedule SC per schedule for to be determined Active FLONASE 50 mcg/inh 1 spray(s) intranasally once a day Active PATADAY 0.2% 1 gtt in each affected eye once a day for 90 days Active Encounters Encounter Location Date Provider Diagnosis [facility] [address] [place] [phone] 08/08/2024 Shruthi Salazar Allergic rhinitis du e to pollen J30.1 ; Other allergic rhinitis J30.89 ; Allergic rhinitis due to animal (cat) (dog) hair and dander J30.81 and Other chronic allergic conjunctivitis H10.45 Assessments Encounter Date Diagnosis (ICD Code) Assessment Notes Treatment Notes Treatment Clinical Notes Section Notes 08/08/2024 Allergic rhinitis due to pollen (ICD-10 - J30.1) 08/08/2024 Other allergic rhinitis (ICD-10 - J30.89) 08/08/2024 Allergic rhinitis due to animal (cat) (dog) hair and dander (ICD-10 - J30.81) 08/08/2024 Other chronic allergic conjunctivitis (ICD-10 - H10.45) Plan Of Treatment Medication Medication Name Sig Start Date Stop Date Notes SIT (TRADITIONAL) variable per schedule SC per schedule for to be determined Next Appt Details Follow Up: 1 Week, Reason: Provider Name:Shruthi monroy, 10/31/2024 10:00:00 AM, [address], [address], Provider Name:Shruthi monroy, 10/31/2024 11:00:00 AM, [address], [place], [address], Progress Notes * Sherry MOFFETT ADOB:[birth year] (69 yo F)Acc No.[id number]:08/08/2024 SCIT-Aeroallergen Patient: Sherry SAUCEDO Provider: Igor Salazar MD :1955 A ge:69 Y S ex:Female Date:08/08/2024 Address:[address] [place], [place] [phone] Pcp:Magalis Cole Subjective: * Chief Complaints: * [...] Hospitalization/Major Diagno stic Procedure: * Medications: T akingSIT (TRADITIONAL) variable see record per schedule SC per schedule PATADAY 0.2% solution 1 gtt in each [...] Powder Breath Activated 1 puff inhaled daily Not-Taking/PRNPataday 0.2 % Solution 1 gtt in [...] potential replacement for e-prescription and drug interaction check*Not- Taking/PRN PROBIOTIC FORMULA (BACILLUS COAGULANS) - CAPSULE 1 [...] Information: * Visit Code: * Procedure Codes: 27641 IMMUNOTHERAPY INJECTIONS. * AGE ENGINEER Sign off status: Completed true * Provider: Igor Salazar MD Date: 08/08/2024 Generated for Yariel bateman/Allen/Deisy on: 0 10/16/2024 06:39 PM CDT History and Physical Notes * [...]
--- OUTSIDE RECORDS SUMMARY | 2024-10-16 18:39 | XMS_ITS | Encounter Summary ---
Author Organization [facility] Address [address] [facility] [place] [address] Care Team Providers Care Health Policy Nurse Name Role Phone Unavailable Primary Care Provider Unavailabl e Encounter Details Date Type Department Care Team (Late st Contact Info) Description 02/21/2024 Lab Requisition [facility] - DermPath Lab [address] [facility], [facility] [place] [address] Danielle Lima DO [address] [facility] 3 [place] [address] Social History Tobacco Use Types Packs/Day Years Used Date Smoking Tobacco: Never Assessed Sex and Gender Information Value Date Recorded Sex Assigned at Not on file Gender Identity Not on file Sexual Orientation Not on file documented as of this encounter Plan of Treatment Not on file documented as of this encounter Procedures Procedure Name Priority Date/Time Associated Diagnosis Comments DERMATOPATHOLOGY Routine 02/21/2024 11:2 7 AM CDT documented in this encounter Results * DERMATOPATHOLOGY (02/21/2024 11:27 AM CDT) Case Report Dermatopathology Report Case: [id number] Authorizing Provider: Danielle Lima DO Collected: 02/21/2024 11:27 AM Ordering Location: [facility] - Received: 02/21/2024 04:26 PM DermPath Lab Pathologist: Nadira Galindo MD Specimen: Skin, right chin 4 3:16 PM CDT DERMATOPATHOLOGY LABORATORY Final Diagnosis Specimen A. SKIN, right chin: BASAL CELL CARCINOMA, NODULAR TYPE (C44.319) 4 3:16 PM CDT DERMATOPATHOLOGY LABORATORY Clinical History R/O BCC 3:16 PM CDT DERMATOPATHOLOGY LABORATORY Gross Description Specimen A: Received is one formalin filled container labeled with the patient's name and designated right chin. The specimen consists of a shave biopsy measuring 4x3x1 mm. Jar 0. 3:16 PM CDT DERMATOPATHOLOGY LABORATORY Microscopic Description Specimen A. SKIN, right chin: Within the dermis there are aggregates of basaloid cells with a high nuclear to cytoplasmic ratio and peripheral palisading. 3:16 PM CDT DERMATOPATHOLOGY LABORATORY Disclaimer An external and internal positive and negative controls are appropriate for the histochemical, immunohistochemical and immunofluorescence stain(s) in this case (if any), except where stated explicitly. The performance characteristics of the stain(s) cited in this report were developed and its performance characteristic determined by the Dermatopathology Laboratory at [facility], directed by Dr. Rosy Galindo. These tests need not be, and therefore are not, approved by the [place] Food and Drug Administration. The tests are used for clinical purposes. Billing Codes Specimen Charges Stain Charges 97948 1 4 3:16 PM CDT DERMATOPATHOLOGY LABORATORY Embedded Images 3:16 PM CDT DERMATOPATHOLOGY LABORATORY Pathology/Cytolo gy TISSUE SPECIMEN FROM SKIN / Unknown 02/21/2024 11:27 AM CDT 02/21/2024 4:26 PM CDT Danielle iLma DO LAB - PATHOLOGY/C YTOLOGY ORDERABLES DERMATOPATHOLOGY LABORATORY [facility] - Department of Dermatology [address], [address] [phone] documented in this encounter Visit Diagnoses Not on filedocumented in this encounter
--- OUTSIDE RECORDS SUMMARY | 2024-10-16 18:39 | XMS_ITS | Clinical Summary ---
Author Organization [facility] Address [address] [place] [address] Care Team Providers Care Fur Dresser Name Role Phone Unavailable Primary Care Provider Unavailabl e Source Comments [facility],non-owned Affiliates and Associated Physician Practices is amultiple site organization consisting of ambulatory clinics and hospital sitesin [place], [place] and [place]. This disclosure is being madepursuant to the Care Everywhere program and may not contain all information available regarding this patient. Last updated 18.[facility] [employer] Social History Tobacco Use Types Packs/Day Years Used Date Smoking Tobacco: Never Assessed Sex and Gender Information Value Date Recorded Sex Assigned at Not on file Gender Identity Not on file Sexual Orientation Not on file Plan of Treatment Health Maintenance Due Date Last Done Comments BONE DENSITY TESTING 1955 COLOGUARD (AGES 45-75) - COL ON CA SCREENING 1955 COLON MONITORING 1955 COLONOSCOPY - COLON CA SCREENING 1955 CT COLONOGRAPHY - COLON CA SCREENING 1955 Colorectal Cancer Screening 1955 FIT - COLON CA SCREENING 1955 FLEX SIG - COLON CA SCREENING 1955 LIPID TESTING 1955 MAMMOGRAM 1955 MEDICARE AWV 12 MONTHS 1955 HEPATITIS C SCREENING 03/10/1971 DTAP/TDAP/TD VACCINES (1 - Tdap) 1972 PNEUMOCOCCAL VACCINE 50+ (1 of 1 - PCV) 2003 ZOSTER VACCINE (1 of 2) 2003 COVID-19 VACCINE ( - 2023-2 5 season) 2024 INFLUENZA VACCINE (#1) 2024 DEPRESSION SCREENING 08/01/2024 Respiratory Syncytial Virus (RSV) Vaccine Pt: or over 60 yrs (1 - 1-dose 75+ series) 2028 HEPATITIS B VACCINE Aged Out No longe r eligible based on patient's age to complete this topic HIB VACCINE Aged Out No longer eligi ble based on patient's age to complete this topic HPV VACCINE Aged Out No longer eligi ble based on patient's age to complete this topic MENINGOCOCCAL (Group B) VACC INE SHARED DECISION-MAKING Aged Out No longer eligibl e based on patient's age to complete this topic MENINGOCOCCAL GROUPS A/C/Y/W VACCINE Aged Out No longer eligible b ased on patient's age to complete this topic Sherry Moffett Personal/Famil y Self [address] [place], [place] [address]
--- OUTSIDE RECORDS SUMMARY | 2024-10-16 18:39 | XMS_ITS | Encounter Summary ---
Author Organization [facility] Address [address] [facility] [place] [address] Care Team Providers Care Distribution Center Administrator Name Role Phone Unavailable Primary Care Provider Unavailabl e Encounter Details Date Type Department Care Team (Late st Contact Info) Description 08/19/2020 Lab Requisition [facility] DermPath Lab [address] [facility] [place] [address] Danielle Lima DO [address] [facility] 3L [place] [address] Social History Tobacco Use Types Packs/Day Years Used Date Smoking Tobacco: Never Assessed Sex and Gender Information Value Date Recorded Sex Assigned at Not on file Gender Identity Not on file Sexual Orientation Not on file documented as of this encounter Plan of Treatment Not on file documented as of this encounter Procedures Procedure Name Priority Date/Time Associated Diagnosis Comments DERMATOPATHOLOGY Routine 08/18/2020 12:0 0 AM ACQUISITIONS ANALYST documented in this encounter Results * DERMATOPATHOLOGY (08/18/2020 12:00 AM ACQUISITIONS ANALYST) Case Report Dermatopathology Report Case: [id number] Authorizing Provider: Danielle Lima DO Collected: 08/18/2020 12:00 AM Ordering Location: [facility] DermPath Lab Received: 08/19/2020 08:26 AM Pathologist: Casandra Elizalde MD Specimens: A) - Skin, above right eyebrow B) - Skin, right shoulder C) - Skin, left forearm 8:28 PM ACQUISITIONS ANALYST DERMATOPATHOLOGY LABORATORY Final Diagnosis Specimen A. SKIN, above right eyebrow: BASAL CELL CARCINOMA, NODULAR TYPE (C44.319) Specimen B. SKIN, right shoulder: BASAL CELL CARCINOMA, NODULAR TYPE (C44.612) Specimen C. SKIN, left forearm: ACTINIC KERATOSIS, LICHENOID (L57.0) (see microscopic description) 1 8:28 PM [facility] DERMATOPATHOLOGY LABORATORY Clinical History A-C: R/O NMSC. 1 8:28 PM [facility] DERMATOPATHOLOGY LABORATORY Gross Description Specimen A: Received is one formalin filled container labeled with the patient's name and designated above right eyebrow. The specimen consists of a shave measuring 6f3n6jm. Jar 0. Specimen B: Received is one formalin filled container labeled with the patient's name and designated right shoulder. The specimen consists of a shave measuring 4i1n7sg. Jar 0. Specimen C: Received is one formalin filled container labeled with the patient's name and designated left forearm. The specimen consists of a shave measuring 0m4e2fz. Jar 0. 8:28 PM [facility] DERMATOPATHOLOGY LABORATORY Microscopic Description Specimen A. SKIN, above right eyebrow: Within the dermis there are aggregates of basaloid cells with a high nuclear to cytoplasmic ratio and peripheral palisading. Specimen B. SKIN, right shoulder: Within the dermis there are aggregates of basaloid cells with a high nuclear to cytoplasmic ratio and peripheral palisading. Specimen C. SKIN, left forearm: There is focal parakeratosis. The lower half of the epidermis shows disorderly maturation of keratinocytes with nuclear pleomorphism. The dermis shows a band-like, chronic inflammatory infiltrate with occasional apoptotic keratinocytes and some basal vacuolar alteration. Additional deeper sections were obtained and reviewed. 1 8:28 PM [facility] DERMATOPATHOLOGY LABORATORY Disclaimer An external and internal positive and negative controls are appropriate for the histochemical, immunohistochemical and immunofluorescence stain(s) in this case (if any), except where stated explicitly. The performance characteristics of the stain(s) cited in this report were developed and its performance characteristic determined by the Dermatopathology Laboratory at [facility], directed by Dr. Rosy Galindo. These tests need not be, and therefore are not, approved by the [place] Food and Drug Administration. The tests are used for clinical purposes. Billing Codes Specimen Charges Stain Charges 17956 80498 23093 1 1 1 1 8:28 PM [facility] DERMATOPATHOLOGY LABORATORY Embedded Images 8:28 PM ACQUISITIONS ANALYST DERMATOPATHOLOGY LABORATORY Pathology/Cytology TISSUE SPECIMEN FROM SKIN / Unknown 08/18/2020 08/19/2020 8:26 AM ACQUISITIONS ANALYST Miscellaneous samples (specimen) TISSUE SPECIMEN FROM SKIN / Unknown 08/18/2020 08/19/2020 8:26 AM ACQUISITIONS ANALYST Miscellaneous samples (specimen) TISSUE SPECIMEN FROM SKIN / Unknown 08/18/2020 08/19/2020 8:26 AM ACQUISITIONS ANALYST Danielle Lima DO LAB - PATHOLOGY/C YTOLOGY ORDERABLES DERMATOPATHOLOGY LABORATORY [facility] - Department of Dermatology [facility] Medicine [address] [place] [address], [address] [phone] documented in this encounter Visit Diagnoses Not on filedocumented in this encounter
--- OUTSIDE RECORDS SUMMARY | 2024-10-16 18:39 | XMS_ITS | Encounter Summary ---
Author Organization [facility] Address [address] [facility] [place] [address] Care Team Providers Care Die Cast Technician Name Role Phone Unavailable Primary Care Provider Unavailabl e Encounter Details Date Type Department Care Team (Late st Contact Info) Description 11/10/2018 Lab Requisition [facility] DermPath Lab [address] [facility] [place] [phone] Danielle Lima DO [address] [facility] 3L [place] [address] Social History Tobacco Use Types Packs/Day Years Used Date Smoking Tobacco: Never Assessed Sex and Gender Information Value Date Recorded Sex Assigned at Not on file Gender Identity Not on file Sexual Orientation Not on file documented as of this encounter Plan of Treatment Not on file documented as of this encounter Procedures Procedure Name Priority Date/Time Associated Diagnosis Comments DERMATOPATHOLOGY Routine 11/09/2018 12:0 0 AM CDT documented in this encounter Results * DERMATOPATHOLOGY (11/09/2018 12:00 AM CDT) Case Report Dermatopathology Report Case: [id number] Authorizing Provider: Danielle Lima DO Collected: 11/09/2018 12:00 AM Pathologist: Rochelle Mcleod MD Received: 11/10/2018 06:32 AM Specimen: Skin, left buddhist 9 9:40 AM CDT DERMATOPATHOLOGY LABORATORY Final Diagnosis Specimen A. SKIN, left buddhist: BASAL CELL CARCINOMA (C44.319) (see microscopic description and comment) 9 9:40 AM CDT DERMATOPATHOLOGY LABORATORY Clinical History ISK R/O BCC 9 9:40 AM CDT DERMATOPATHOLOGY LABORATORY Gross Description Specimen A: Received is one formalin filled container labeled with the patient's name and designated left buddhist. The specimen consists of a shave biopsy measuring 5x3x1 mm. Jar 0. 9:40 AM [facility] DERMATOPATHOLOGY LABORATORY Microscopic Description Specimen A. SKIN, left buddhist: The specimen consists of aggregates of basaloid cells, located within the superficial dermis, with high nuclear to cytoplasmic ratio and peripheral palisading. Additional deeper sections were obtained and reviewed. COMMENT: The small size of the specimen limits subtyping of the lesion. 9:40 AM T DERMATOPATHOLOGY LABORATORY Disclaimer An external and internal positive and negative controls are appropriate for the histochemical, immunohistochemical and immunofluorescence stain(s) in this case (if any), except where stated explicitly. The performance characteristics of the stain(s) cited in this report were developed and its performance characteristic determined by the Dermatopathology Laboratory at [facility], directed by Dr. Rosy Galindo. These tests need not be, and therefore are not, approved by the [place] Food and Drug Administration. The tests are used for clinical purposes. Billing Codes Specimen Charges Stain Charges 53971 1 9:40 AM CDT DERMATOPATHOLOGY LABORATORY Embedded Images 9:40 AM T DERMATOPATHOLOGY LABORATORY Pathology/Cytolog y TISSUE SPECIMEN FROM SKIN / Unknown 11/09/2018 11/10/2018 6:32 AM CDT Danielle Lima DO LAB - PATHOLOGY/C YTOLOGY ORDERABLES Performing Organization Address City/State/[facility] Co de Phone Number DERMATOPATHOLOGY LABORATORY [facility] - Department of Dermatology [address] [place] [address], 5th [place] [address], [facility] [phone] documented in this encounter Visit Diagnoses Not on filedocumented in this encounter
--- OUTSIDE RECORDS SUMMARY | 2024-10-16 18:39 | XMS_ITS | Referral Summary ---
Author Organization [facility] Address [address] [place] [address] Care Team Providers Care Swing Type Lathe Operator Name Role Phone Shruthi Salazar MD Unavailable [phone] Danielle Lima DO Unavailable [phone] Nelia Hager NP Primary Care Provider [phone] Encounters Date Type Department Care Team Description 08/23/2024 11:00 AM ACQUISITION LEAD Office Visit [facility] at [address] [address] Nelia Hager, [place] Medicare annual wellness visit, subsequent (Primary Dx); Mild episode of recurrent major depressive disorder; Primary hypertension; Mixed hyperlipidemia; Rash of face; Hx of diverticulitis of colon; Vitamin D deficiency 08/17/2024 10:05 AM ACQUISITION LEAD Lab [facility] [address] [place] [address] Encounter for screening examination for impaired glucose regulation and diabetes mellitus; Vitamin D deficiency; Primary hypertension; Mixed hyperlipidemia from Last 3 Months Allergies Active Allergy Reactions Criticality Noted Date [...] 08/23 Assessment & Plan (08/23/2024 11:31 AM ACQUISITION LEAD): A yearly Medicare Annual Wellness Visit has [...] d Assessment & Plan (08/05/2021 10:26 AM ACQUISITION LEAD): HPI: Condition is improving A&P: Discussed/ordered labs, [...] 2021. Assessment & Plan (07/17/2020 3:34 PM ACQUISITION LEAD): HPI: Condition is stable A&P: Discussed/ordered labs, [...] Please start taking probiotic 20billion CFU daily continuous churn buttermaker. This will help maintain the good bacteria [...] 12/20/2018 Assessment & Plan (08/23/2024 11:29 AM ACQUISITION LEAD): Cholesterol well controlled, continues Atorvastatin, fish oil, [...] wnl. Assessment & Plan (08/12/2022 12:30 PM ACQUISITION LEAD): Continues Atorvastatin and fish oil, no side effects reported. Labs ordered Assessment & Plan (02/09/2022 7:35 AM CDT): HPI: Condition is stable A&P: Discussed/ordered labs, encouraged healthy, low carbohydrate lifestyle and at least 150min/week of exercise, continue on atorvastatin 10 mg daily, fish oil daily Assessment & Plan (08/05/2021 10:29 AM ACQUISITION LEAD): HPI: Condition is stable A&P: Discussed/ordered labs, [...] lower carb lifestyle and exercise. The brand [facility] [place] 3 2100 Olcenic Blend is a good brand and you will only need to take one capsule daily Assessment & Plan (01/22/2021 7:29 AM CDT): HPI: Condition is stable A&P: Discussed/ordered labs, encouraged healthy, low carbohydrate lifestyle and at least 150min/week of exercise, continue on Zetia 10 mg daily and fish oil daily. Assessment & Plan (07/17/2020 1:45 PM ACQUISITION LEAD): HPI: Condition is stable A&P: Discussed/ordered labs, [...] daily Assessment & Plan (06/22/2019 10:10 AM ACQUISITION LEAD): Discussed labs, Condition is stable, encouraged healthy, [...] 12/20/2018 Assessment & Plan (08/18/2023 12:53 PM ACQUISITION LEAD): Has been working on diet modifications, down 5 lbs. Healthy, low carbohydrate lifestyle and exercise for 150min/week recommended Assessment & Plan (03/30/2023 1:56 PM CDT): Healthy, low carbohydrate lifestyle and exercise for 150min/week recommended Assessment & Plan (02/10/2023 11:01 AM CDT): Healthy, low carbohydrate lifestyle and exercise for 150min/week recommended Assessment & Plan (08/12/2022 12:31 PM ACQUISITION LEAD): Healthy, low carbohydrate lifestyle and exercise for 150min/week recommended Assessment & Plan (02/09/2022 7:35 AM CDT): HPI: Condition is not at/near goal goal BMI <30 A&P: Healthy, high-protein, lower carbohydrate, lower fat lifestyle and exercise for 150min/week recommended Recommend tracking everything you put in your mouth on an dana like [employer] Lower carb substitutions: Toy carries a zero net carb bread If [...] in much longer they will become mushy [place] and/or coconut flour instead of regular flour [...] pork rinds For yogurt, try Two Good kenyan yogurt Use Carlos Alberto for recipe ideas. Type in low carb... [...] cup. Assessment & Plan (09/08/2021 9:41 AM ACQUISITION LEAD): HPI: Condition is improving, but not at goal goal BMI <30 A&P: Healthy, high-protein, lower carbohydrate, lower fat lifestyle and exercise for 150min/week recommended, continue working with Nelia Hager NP for CHIP program. Substitutions: Recommend tracking everything you put in your mouth on an dana like [employer] or [employer]i carries a zero net carb bread [...] in much longer they will become mushy [place] and/or coconut flour instead of regular flour [...] pork rinds For yogurt, try Two Good kenyan yogurt Use Carlos Alberto for recipe ideas. Type in low carb... Assessment & Plan (08/05/2021 10:29 AM ACQUISITION LEAD): HPI: Condition is not at/near goal goal BMI <30 A&P: Healthy, high-protein, lower carbohydrate, lower fat lifestyle and exercise for 150min/week recommended We will have pt see Nelia Hager NP for weight loss Substitutions: Recommend tracking everything you put in your mouth on an dana like [employer] or [employer] carries a zero net carb bread If [...] in much longer they will become mushy [place] and/or coconut flour instead of regular flour [...] pork rinds For yogurt, try Two Good kenyan yogurt Use [employer] for recipe ideas. Type in low carb... Assessment & Plan (01/22/2021 7:28 AM CDT): HPI: Condition is not at/near goal goal BMI <30 A&P: Healthy, high-protein, lower carbohydrate, lower fat lifestyle and exercise for 150min/week recommended Substitutions: Recommend tracking everything you put in your mouth on an dana like [employer] or [employer] Aldi carries a zero net carb bread [...] in much longer they will become mushy [place] and/or coconut flour instead of regular flour [...] pork rinds For yogurt, try Two Good kenyan yogurt Use Pinterest for recipe ideas. Type in low carb... Assessment & Plan (07/21/2020 10:17 AM ACQUISITION LEAD): Healthy, low carbohydrate lifestyle and exercise for 150min/week recommended Assessment & Plan (07/17/2020 1:42 PM ACQUISITION LEAD): HPI: Condition is stable A&P: Healthy, low [...] in much longer they will become mushy [place] and/or coconut flour instead of regular flour [...] For ice cream, try the brand Enlightened Use Pinterest for recipe ideas. Type in low carb... Assessment & Plan (12/25/2019 9:19 AM CDT): Healthy, low carbohydrate lifestyle and exercise for 150min/week recommended Assessment & Plan (06/22/2019 10:17 AM ACQUISITION LEAD): Healthy, low carbohydrate diet and exercise for [...] Overview (12/18/2018): Managed by Dr. Jacob Castillo [facility] Assessment & Plan (02/09/2022 7:36 AM CDT): Patient sees Dermatology every 6 months. Recommend sunscreen regularly in a big floppy had long sleeves if the patient is going to be out in the sun. Patient does have a pool. Assessment & Plan (08/05/2021 10:29 AM ACQUISITION LEAD): HPI: Condition is stable A&P: Continue seeing dermatology every 6 months. For sunscreen regularly and a big floppy hat and long sleeves if you are going to be out in the sun Pt has a pool Assessment & Plan (01/22/2021 11:19 AM CDT): Condition is stable. Pt sees Dr. Lima in [place] every 6 months. She had a basal cell removed from her left arm September 2019 and had a Mohs procedure done. She had another basal cell removed from her face September 2020. Pt wears sunscreen regularly. Assessment & Plan (07/17/2020 3:39 PM ACQUISITION LEAD): Patient sees Dr. Lima in [place] every 6 months. She had a basal cell removed from her left arm September 2019 and had a Mohs procedure done. Patient wear sunscreen regularly Assessment & Plan (12/25/2019 11:03 AM CDT): Pt sees Dr. Lima in [place] every 6 mo, she saw her in Sep 2019 and had basal cell removed from left arm. She has had MOHS procedures done. She wears sunscreen. Assessment & Plan (06/22/2019 10:15 AM ACQUISITION LEAD): Pt sees Dr. Lima in [place] every 6 mo, she is due to see her now. She has had MOHS procedures done. Last one was over the summer. She wears sunscreen. Asthma due to environmental allergies 03/17/2018 Assessment & Plan (08/12/2022 12:32 PM ACQUISITION LEAD): Has been stable, just finished up her allergy shots in July. Continues Arnuity 200 mcg 1 puff daily, Zyrtec, and Flonase prn. Assessment & Plan (02/09/2022 9:15 AM CDT): HPI: Condition is stable A&P: Discussed/ordered labs, encouraged healthy, low carbohydrate lifestyle and at least 150min/week of exercise, continue seeing Dr. Salazar parts order and stock clerk, albuterol as needed, Arnuity 200 mcg 1 puff daily Please consider the albuterol as a rescue only medication. If needing the albuterol more than 2xwk, please contact office. Continue using zyrtec daily, flonase as needed and saline nose rinses Assessment & Plan (08/05/2021 10:31 AM ACQUISITION LEAD): HPI: Condition is stable A&P: Discussed/ordered labs, encouraged healthy, low carbohydrate lifestyle and at least 150min/week of exercise, continue Seeing Dr. Salazar parts order and stock clerk, albuterol as needed. Asmanex 110 mcg 1 [...] from Asmanex inhaler for the summer per parts order and stock clerk Dr. Salazar. States her albuterol inhaler is about 5 years old, but that she will get a new prescription from her parts order and stock clerk in [address] Salazar. [...] symptoms Assessment & Plan (07/17/2020 3:37 PM ACQUISITION LEAD): HPI: Condition is stable A&P: Discussed/ordered labs, [...] shots Assessment & Plan (06/22/2019 10:05 AM ACQUISITION LEAD): Discussed environmental controls No smoking around patient, [...] daily Assessment & Plan (08/05/2021 7:54 AM ACQUISITION LEAD): HPI: Condition is stable A&P: Discussed/ordered labs, encouraged healthy, low carbohydrate lifestyle and at least 150min/week of exercise, continue on Premarin cream twice weekly Assessment & Plan (01/22/2021 11:05 AM CDT): HPI: Condition is stable A&P: Discussed/ordered labs, encouraged healthy, low carbohydrate lifestyle and at least 150min/week of exercise, continue on Premarin cream twice weekly. Assessment & Plan (07/17/2020 1:44 PM ACQUISITION LEAD): HPI: Condition is stable A&P: Discussed/ordered labs, encouraged healthy, low carbohydrate lifestyle and at least 150min/week of exercise, continue on Premarin cream Assessment & Plan (06/22/2019 10:13 AM ACQUISITION LEAD): Labs ordered Condition is stable, encouraged healthy, [...] daily Assessment & Plan (08/05/2021 7:54 AM ACQUISITION LEAD): HPI: Condition is stable A&P: Discussed/ordered labs, encouraged healthy, low carbohydrate lifestyle and at least 150min/week of exercise, continue on Vitamin D3 6000 units daily Assessment & Plan (01/22/2021 11:05 AM CDT): HPI: Condition is stable A&P: Discussed/ordered labs, encouraged healthy, low carbohydrate lifestyle and at least 150min/week of exercise, continue on vitamin-D supplements 6000 units daily. Assessment & Plan (07/17/2020 3:38 PM ACQUISITION LEAD): HPI: Condition is stable A&P: Discussed/ordered labs, [...] supplements. Assessment & Plan (06/22/2019 10:13 AM ACQUISITION LEAD): Discussed labs, Condition is worsening, encouraged healthy, [...] joints Assessment & Plan (08/05/2021 7:53 AM ACQUISITION LEAD): HPI: Condition is stable A&P: Discussed/ordered labs, [...] joints. Assessment & Plan (07/17/2020 1:45 PM ACQUISITION LEAD): HPI: Condition is stable A&P: Discussed/ordered labs, [...] peptides Assessment & Plan (06/22/2019 10:19 AM ACQUISITION LEAD): Takes tylenol if she is in too much pain, may try the tylenol arthritis as needed. Try taking collagen powder daily Hypertension 12/15/2013 Overview (11/05/2016): HYPERTENSION NOS Assessment & Plan (08/23/2024 11:29 AM ACQUISITION LEAD): BP stable in office, renal function stable. Continues Amlodipine. Assessment & Plan (02/16/2024 11:31 AM CDT): BP stable in office, renal function stable. Continues Amlodipine. Assessment & Plan (08/18/2023 12:53 PM ACQUISITION LEAD): BP stable in office, renal function stable. Continues Amlodipine. Assessment & Plan (02/10/2023 11:01 AM CDT): BP stable in office, renal function in good shape. Continues Amlodipine. Assessment & Plan (08/12/2022 12:30 PM ACQUISITION LEAD): BP stable in office, continues Amlodipine 5 mg daily Labs ordered Assessment & Plan (02/09/2022 7:35 AM CDT): HPI: Condition is stable A&P: Discussed/ordered labs, encouraged healthy, low carbohydrate lifestyle and at least 150min/week of exercise, continue on amlodipine 5 mg daily Assessment & Plan (08/05/2021 7:51 AM ACQUISITION LEAD): HPI: Condition is stable A&P: Discussed/ordered labs, encouraged healthy, low carbohydrate lifestyle and at least 150min/week of exercise, continue on Amlodipine 5 mg daily Assessment & Plan (01/22/2021 7:28 AM CDT): HPI: Condition is stable A&P: Discussed/ordered labs, encouraged healthy, low carbohydrate lifestyle and at least 150min/week of exercise, continue on amlodipine 5 mg daily. Assessment & Plan (07/17/2020 1:42 PM ACQUISITION LEAD): HPI: Condition is stable A&P: Discussed/ordered labs, [...] it Assessment & Plan (06/22/2019 10:06 AM ACQUISITION LEAD): Labs ordered, Condition is stable, home bp readings are 120/70s; encouraged healthy, low carbohydrate diet and at least 150min/week of exercise, continue on amlodipine 5mg daily, no problems with it Depression 12/15/2013 Overview (11/05/2016): DEPRESSIVE DISORDER NEC Assessment & Plan (08/23/2024 11:30 AM ACQUISITION LEAD): Tried increasing to the Celexa 40 mg [...] today. Assessment & Plan (08/12/2022 12:31 PM ACQUISITION LEAD): Stable on Citalopram, denies SI. Assessment & [...] daily Assessment & Plan (08/05/2021 7:51 AM ACQUISITION LEAD): Patient reiterated no suicidal thoughts at this [...] daily. Assessment & Plan (07/17/2020 1:42 PM ACQUISITION LEAD): Patient reiterated no suicidal thoughts at this [...] 20mg. Assessment & Plan (06/22/2019 10:16 AM ACQUISITION LEAD): Labs ordered, Condition is stable, encouraged healthy, low carbohydrate diet and at least 150min/week of exercise, continue on celexa 20mg daily Resolved Problems Problem Noted Date Diagnosed Date Resolved Date Treatment refusal 03/29/2018 06/20/2018 Overview (03/29/2018): Patient refused medication for elevated cholesterol Immunizations Immunization Administration Dates Next Due Influenza, [...] Pneumococcal Polysaccharide PPV23 03/17/2018 Td, adsorbed 06/22/2019 Social History Tobacco Use Types Packs/Day Years [...] often do you attend chur ch or yarsanism services? Never 07/21/2020 Do you belong to any clubs o r organizations such as synagogue groups, unions, fraternal or athletic groups, or [...] staff should administer the PHQ-9) 0 08/17/2024 [facility] Answer Date Recorded [...] on file Legal Sex Female 2:34 PM ACQUISITION LEAD Gender Identity Female 06/21/2019 9:01 AM ACQUISITION LEAD Sexual Orientation Straight 06/21/2019 9: 01 AM ACQUISITION LEAD Last Filed Vital Signs Vital Sign Reading Time Taken Comments Blood Pressure 130/70 08/23/2024 10:51 AM ACQUISITION LEAD Pulse 87 08/23/2024 10:51 AM ACQUISITION LEAD Temperature 36.6 C (97.8 F) 08/23/2024 10:51 AM ACQUISITION LEAD Respiratory Rate 18 08/18/2023 10:47 AM ACQUISITION LEAD Oxygen Saturation 95% 08/23/2024 10:51 AM ACQUISITION LEAD Inhaled Oxygen Concentration - - Weight 95.7 kg (211 lb) 08/23/2024 10:51 AM ACQUISITION LEAD Height 157.5 cm (5' 2 ) 08/23/2024 10:51 AM ACQUISITION LEAD Body Mass Index 38.59 08/23/2024 10:51 AM ACQUISITION LEAD Plan of Treatment Not on file Procedures Procedure Name Priority Date/Time Associated Diagnosis Comments EGFR Routine 08/17/2024 11:28 AM ACQUISITION LEAD Primary hypertension Mixed hyperlipidemia DIFFERENTIAL AUTO Routine 08/17/2024 11:28 AM ACQUISITION LEAD Primary hypertension Mixed hyperlipidemia COMPREHENSIVE METABOLIC PANEL Routine 08/17/2024 11:28 AM ACQUISITION LEAD Primary hypertension Mixed hyperlipidemia CBC WITH AUTO DIFFERENTIAL Routine 08/17/2024 11:28 AM ACQUISITION LEAD Primary hypertension Mixed hyperlipidemia LIPID PANEL Routine 08/17/2024 11:28 AM ACQUISITION LEAD Primary hypertension Mixed hyperlipidemia THYROID FUNCTION CASCADE Routine 08/17/2024 11:28 AM ACQUISITION LEAD Primary hypertension VITAMIN D 25 HYDROXY Routine 08/17/2024 11:28 AM ACQUISITION LEAD Vitamin D deficiency HEMOGLOBIN A1C Routine 08/17/2024 11:28 AM ACQUISITION LEAD Encounter for screening examination for impaired glucose regulation and diabetes mellitus SCREENING MAMMOGRAM BILATERAL W JERZY Schedule Routine, Read Routine (OP Routine) 07/13/2024 3:45 PM ACQUISITION LEAD Screening mammogram, encounter for DEXA AXIAL SKELETON BONE DENSITY 1 OR MORE SITES Schedule Routine, Read Routine (OP Routine) 08/23/2023 2:07 PM ACQUISITION LEAD Encounter for osteoporosis screening in asymptomatic postmenopausal patient STOOL DNA COLOGUARD Routine 02/17/2023 8:00 AM CDT Colon cancer screening HEPATITIS C ANTIBODY Routine 06/22/2019 11:12 AM ACQUISITION LEAD Essential hypertension Mixed hyperlipidemia Vitamin D deficiency Encounter for hepatitis C screening test for low risk patient HM COLONOSCOPY Routine 03/27/2018 from Last 3 Months or Most Recently Relevant to Health Maintenance Results * eGFR (08/17/2024 11:28 AM ACQUISITION LEAD) eGFR 64 >=60 mL/min/1. 73 m2 Comment: [...] was last reviewed 2021. Testing performed by: [facility], [address] [place] [address], [facility] [id number] Blood 08/17/2024 11:2 8 AM ACQUISITION LEAD 08/17/2024 6:21 PM ACQUISITION LEAD Nelia Cox DEBURRING TECHNICIAN LAB BLOOD ORDERABLES Final Resul t [facility] ([place]) 1 [facility] Department [place] [address] * Differential, auto (08/17/2024 11:28 AM ACQUISITION LEAD) Neutrophil abs 5.5 1.5 - 6.5 K/cumm Comment:Testing performed by : [facility], [address] [place] [address], [id number] Imm gran abs 0.0 0.0 - 0.1 K/cumm [facility] ([place]) Comment:Testing performed by : [facility], [address] [place] [address], [id number] Lymphocyte abs 2.1 0.8 - 3.3 K/cumm [facility] ([place]) Comment:Testing performed by : [facility], [address] [place] [address], [id number] Monocyte abs 0.5 0.2 - 0.8 K/cumm [facility] ([place]) Comment:Testing performed by : [facility], [address] [place] [address], [id number] Eosinophil abs 0.0 0.0 - 0.5 K/cumm [facility] ([place]) Comment:Testing performed by : [address], [address] Basophil abs 0.1 0.0 - 0.1 K/cumm [facility] ([place]) Comment:Testing performed by : [address], [address] Neutrophil pct 66.7 % [facility] ([place]) Comment: Interpretive Data Percent cell count reference ranges are not reported, since discordance with absolute values may lead to misinterpretation of CBC data. Current Interpretive Data was last revised on 2017. Testing performed by: [address], [address] Imm gran pct 0.4 % [facility] ([place]) Comment: Interpretive Data Percent cell count reference ranges are not reported, since discordance with absolute values may lead to misinterpretation of CBC data. Current Interpretive Data was last revised on 2017. Testing performed by: [facility], [address] [place] [address]., [id number] Lymphocyte pct 25.5 % [facility] ([place]) Comment: Interpretive Data Percent cell count reference ranges are not reported, since discordance with absolute values may lead to misinterpretation of CBC data. Current Interpretive Data was last revised on 2017. Testing performed by: [facility], [address] [place] [address]., [id number] Monocyte pct 6.3 % [facility] ([place]) Comment: Interpretive Data Percent cell count reference ranges are not reported, since discordance with absolute values may lead to misinterpretation of CBC data. Current Interpretive Data was last revised on 2017. Testing performed by: [facility], [address] [place] [address], [id number] Eosinophil pct 0.4 % [facility] ([place]) Comment: Interpretive Data Percent cell count reference ranges are not reported, since discordance with absolute values may lead to misinterpretation of CBC data. Current Interpretive Data was last revised on 2017. Testing performed by: [facility], [address] [place] [address]., [id number] Basophil pct 0.7 % [facility] ([place]) Comment: Interpretive Data Percent cell count reference ranges are not reported, since discordance with absolute values may lead to misinterpretation of CBC data. Current Interpretive Data was last revised on 2017. Testing performed by: [address] [address] Blood 08/17/2024 11:2 8 AM ACQUISITION LEAD 08/17/2024 5:49 PM ACQUISITION LEAD us Nelia Hager DEBURRING TECHNICIAN LAB BLOOD ORDERABLES Final Resul t [facility] ([place]) 1 [facility] Department [place] [address] * Thyroid Function [place] (08/17/2024 11:28 AM ACQUISITION LEAD) [facility] TSH 1.37 0.30 - 4.20 mcIUnit/mL Comment:Testing performed by : [facility], [address] [place] [address], [id number] Blood 08/17/2024 11:2 8 AM ACQUISITION LEAD 08/17/2024 5:49 PM ACQUISITION LEAD Nelia Hager DEBURRING TECHNICIAN LAB BLOOD ORDERABLES Final Resul t [facility] ([place]) 1 [facility] Department [place] [address] * (ABNORMAL) CBC with auto differential (08/17/2024 11:28 AM ACQUISITION LEAD) [facility] WBC 8.2 3.8 - 9.9 K/cumm Comment:Testing performed by : [address], [address] Hgb 13.5 11.9 - 15.5 g/dL [facility] ([place]) Comment:Testing performed by : [address], [address] Hct 44.7 35.6 - 45.5 % [facility] ([place]) Comment:Testing performed by : [address], [address] Plt 288 150 - 400 K/cumm [facility] ([place]) Comment:Testing performed by : [address], [address] MPV 9.4 9.1 - 12.3 fL [facility] ([place]) Comment:Testing performed by : [address], [address] RBC 4.65 3.90 - 5.20 M/cumm [facility] ([place]) Comment:Testing performed by : [address], [address] MCV 96.1 81.3 - 96.4 fL [facility] ([place]) Comment:Testing performed by : [address], [address] MCH 29.0 27.1 - 33.3 pg [facility] ([place]) Comment:Testing performed by : [facility], [address] [place] [address], [id number] MCHC 30.2(L) 32.3 - 35.7 g/dL [facility] ([place]) Comment:Testing performed by : [facility], [address] [place] [address], [id number] RDW CV 13.4 11.1 - 14.9 % [facility] ([place]) Comment:Testing performed by : [facility], [address] [place] [address], [id number] RDW SD 47.5 35.7 - 48.1 fL [facility] ([place]) Comment:Testing performed by : [facility], [address] [place] [address], [id number] NRBC abs 0.00 0.00 - 0.01 K/cumm [facility] ([place]) Comment:Testing performed by : [facility], [address] [place] [address], [id number] Blood 08/17/2024 11:2 8 AM ACQUISITION LEAD 08/17/2024 5:49 PM ACQUISITION LEAD us Nelia Hager DEBURRING TECHNICIAN LAB BLOOD ORDERABLES Final Resul t Performing Organization Address City/[facility]/ZIP Co de Phone Number [facility] ([place]) 1 [facility] [place] [address] * Vitamin D 25 hydroxy (08/17/2024 11:28 AM ACQUISITION LEAD) Pathologist [facility] Vitamin D 25-OH 49 30 - 80 ng/mL Comment:Testing performed by : [facility], [address] [place] [address], [id number] Blood 08/17/2024 11:2 8 AM ACQUISITION LEAD 08/17/2024 5:49 PM ACQUISITION LEAD us Nelia Hager DEBURRING TECHNICIAN LAB BLOOD ORDERABLES Final Resul t RADHAANAHY [facility] ([place]) 1 [facility] [place] [address] * Hemoglobin A1c (08/17/2024 11:28 AM ACQUISITION LEAD) Hgb A1C 5.6 4.0 - 5.6 % Comment:Testing performed by : [facility], [address] [place] [address]., [id number] Estimated Average Glucose 114 mg/dL [facility] ([place]) Comment: The ADA recommends reporting an estimated Average Glucose (eAG) with all Hemoglobin A1c results using the equation derived from a study of 507 normal and diabetic adults. Minority populations were underrepresented and children were not included. (Diabetes Care 31:9644-8915, 2008). The eAG is not equivalent to a fasting glucose. Testing performed by: [facility], [address] [place] [address]., [address] Blood 08/17/2024 11:2 8 AM ACQUISITION LEAD 08/17/2024 5:49 PM ACQUISITION LEAD Nelia Hager NP LAB BLOOD ORDERABLES Final Resul t GELY KHOURY ([place]) 1 [facility]ly [facility] Department [place] [address] * Lipid panel (08/17/2024 11:28 AM ACQUISITION LEAD) Cholesterol 156 30 - 199 mg/dL Comment: [...] last revised on 2018. Testing performed by: [facility], [address] [place] [address], [place]., [address] Triglycerides 132 <=149 mg/dL GELY KHOURY ([place]) Comment: Interpretive Data [...] last revised on 2018. Testing performed by: [facility], [address] [place] [address]., [address] HDL 56 >=40 mg/dL GELY Tee ([place]) Comment: Interpretive Data Ages < or [...] last revised on 2018. Testing performed by: [facility], [address] [place] [address]., [address] LDL, calculated 77 <=129 mg/dL GELY KHOURY ([place]) Comment: Interpretive Data [...] last revised on 2024. Testing performed by: [address] [address] Non-HDL Cholesterol 100 mg/dL GELY KHOURY ([place]) [...] last revised on 2018. Testing performed by: [address] [address] Chol/HDL ratio 3 RADHANE Demian KHOURY ([place]) Comment:Testing performed by : [address] [address] Blood 08/17/2024 11:2 8 AM ACQUISITION LEAD 08/17/2024 5:49 PM ACQUISITION LEAD us Nelia Hager DEBURRING TECHNICIAN LAB BLOOD ORDERABLES Final Resul t GELY KHOURY ([place]) 1 [facility] Department [place] [address] * Comprehensive metabolic panel (08/17/2024 11:28 AM ACQUISITION LEAD) Sodium 140 135 - 145 mmol/L Comment:Testing performed by : [address] [address] Potassium, pl 4.2 3.3 - 4.9 mmol/L GELY KHOURY ([place]) Comment:Testing performed by : [address] [address] Chloride 104 97 - 110 mmol/L GELY KHOURY ([place]) Comment:Testing performed by : [address] [address] CO2 25 22 - 32 mmol/L GELY KHOURY ([place]) Comment:Testing performed by : [address] [address] Anion gap 11 2 - 15 mmol/L [facility] ([place]) Comment:Testing performed by : [facility], [address] [place] [address]., [address] BUN 10 6 - 25 mg/dL [facility] ([place]) Comment:Testing performed by : [address], [address] Creatinine 0.95 0.60 - 1.10 mg/dL [facility] ([place]) Comment:Testing performed by : [facility], [address] [place] [address], [address] Glucose 97 70 - 199 mg/dL CERNER [...] was last revised 2022. Testing performed by: [facility], [address] [place] [address]., [address] Calcium 9.3 8.5 - 10.3 mg/dL [facility] ([place]) Comment:Testing performed by : [address] [address] Bilirubin, total 1.1 0.1 - 1.2 mg/dL [facility] ([place]) Comment:Testing performed by : [address] [address] Protein, pl 6.6 6.5 - 8.5 g/dL [facility] ([place]) Comment:Testing performed by : [address], [address] Albumin 4.0 3.5 - 5.0 g/dL [facility] ([place]) Comment:Testing performed by : [address], [address] Alk phos 95 40 - 130 Units/L [facility] ([place]) Comment:Testing performed by : [facility], [address] [place] [address]., [address] ALT 14 7 - 45 Units/L GELY KHOURY ([place]) Comment:Testing performed by : [facility], [address] [place] [address]., [address] AST 22 10 - 45 Units/L GELY KHOURY ([place]) Comment:Testing performed by : [facility], [address] [place] [address]., [address] Blood 08/17/2024 11:2 8 AM ACQUISITION LEAD 08/17/2024 5:49 PM ACQUISITION LEAD Nelia Hager DEBURRING TECHNICIAN LAB BLOOD ORDERABLES Final Resul t GELY KHOURY ([place]) 1 [facility]ly [facility] Department [place] [address] * Screening Mammogram Bilateral W Jerzy (07/13/2024 3:45 PM ACQUISITION LEAD) Anatomical Region Laterality Modality Breast Bilateral Mammography 07/13/2024 4:34 PM ACQUISITION LEAD Impressions 07/13/2024 4:34 PM ACQUISITION LEAD There is no mammographic evidence of malignancy. A 1 year screening mammogram is recommended. BI-RADS: 1 - Negative. The patient has been or will be contacted. The patient will be entered into a reminder system with a target due date of 1 year for her next mammogram. Electronically signed by: Nadia Potter M.D. Narrative 07/13/2024 4:34 PM ACQUISITION LEAD EXAMINATION: SCREENING MAMMOGRAM BILATERAL W JERZY ORDERING [...] 1 or 2 Site (08/23/2023 2:07 PM ACQUISITION LEAD) Anatomical Region Laterality Modality Body N/A Other 08/23/2023 7:50 PM ACQUISITION LEAD Narrative 08/23/2023 7:52 PM ACQUISITION LEAD EXAM DESCRIPTION: DEXA AXIAL SKELETON BONE DENSITY 1 OR MORE SITES REASON FOR STUDY: 68 y/o year old F with given history of: Bone density Screening. 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 MF: [place]ASIA Report ID: [id number] Reading Location: [place] [address] Procedure Note Jimbo Brooks MD - 08/23/2023 EXAM DESCRIPTION: DEXA AXIAL SKELETON BONE DENSITY 1 OR MORE SITES REASON FOR STUDY: 68 y/o year old F with given history of: Bonedensity Screening. 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 MF: NYASIA Report ID: [id number] Reading Location: [place] [address] Nelia Hager DEBURRING TECHNICIAN IM DXA PROCEDURES Final Result * Stool DNA - Cologuard (02/17/2023 8:00 AM CDT) Stool DNA - Cologuard Negative Negative [employer] (AuthentiumIA #:[id number]) Comment: NEGATIVE TEST RESULT. A negative Cologuard [...] (Rajesh Escudero al, N Engl J Med 2014;370(14):6447-0175) The normal value (reference range) for this assay is negative. COLOGUARD RE-SCREENING RECOMMENDATION: Periodic colorectal cancer screening is an important part of preventive healthcare for asymptomatic individuals at average risk for colorectal cancer. Following a negative Cologuard result, the [place] [employer] Society and U.S. Multi-Society Task Force screening guidelines recommend a Cologuard re-screening interval of 3 years. References: [place] [employer] Guideline for Colorectal Cancer Screening: https://www.cancer.org/cancer/lgpmz-vraqai-aljafu/baugtbvbd-vzxcrburp-ujkftol/ac s-rec ommendations.html.; David DK, Tiffanie CR, [place] CostaK, Colorectal Cancer Screening: Recommendations for Physicians and Patients from the U.S. Multi-Society Task Force on Colorectal Cancer Screening , Am J Gastroenterology 2017; 112:8150-5433. TEST DESCRIPTION: Composite algorithmic analysis of stool [...] (Rajesh Escudero al, N Engl J Med 2014;370(14):3762-3627.) Cologuard may produce a false negative or false positive result (no colorectal cancer or precancerous polyp present at colonoscopy follow up). A negative Cologuard test result does not guarantee the absence of CRC or advanced adenoma (pre-cancer). The current Cologuard screening interval is every 3 years. ([place] [employer] Society and U.S. Multi-Society Task Force). Cologuard performance data in a 10,000 patient pivotal study using colonoscopy as the reference method can be accessed at the following location: www.CiDRA.[employer]/results. Additional description of the Cologuard test process, warnings and precautions can be found at www.Briteseedrd.com. Stool 02/17/2023 8:00 AM CDT 02/18/2023 5:37 PM CDT Nelia Hager DEBURRING TECHNICIAN LAB BODY FLUIDS AND STOOLS ORDER HONORIO Final Result [facility] (CLIA #:[id number]) [address] [place] [address] * Hepatitis C antibody (06/22/2019 11:12 AM ACQUISITION LEAD) Hep C Ab Negative Negative GELY KHOURY ([place]) Comment:Testing performed by : [facility], [address] [place] [address], [address] Blood specimen (specimen) 06/22/2019 11:12 AM ACQUISITION LEAD 06/22/2019 7:18 PM ACQUISITION LEAD Magalis Morales DEBURRING TECHNICIAN LAB MICROBIOLOGY - GENERAL ORDERABLES Edited Result - Final Performing Organization Address City/[facility]/ZIP Co de Phone Number GELY KHOURY ([place]) 1 [facility] [place] [address] * COLONOSCOPY (03/27/2018) Colonoscopy Normal Comment:Cologuard Historical Provider HEALTH MAINTENANCE Final Result from Last 3 Months or Most Recently Relevant to Health [place] [address] [place] [address] MEDICARE [facility] Address: [facility] [address] [place] [address] [facility]IC[facility] Address: [address] [address] ADDISON ALEX PEREZ Care Teams Swing Type Lathe Operator Relationship Specialty Start Date End Date Nelia Hager NP [address] [place] [address] PCP - General Family Medicine 06/04/22 Shruthi Salazar MD Allergy and Immunology 03/17/18 Danielle Lima DO [address] [place] [address] Referring Physician Dermatology 07/21/20
--- OUTSIDE RECORDS SUMMARY | 2024-10-16 18:39 | XMS_ITS | Clinical Summary ---
Author Organization [facility] Address [address] [place] [address] Phone Care Team Providers Care Pastry Sous Chef Name Role Phone Magalis Morales MILK VENDOR Primary Care Provi vivian Allergies Active Allergy Reactions Criticality Noted Date Comments Azithromycin Palpitations High 03/15/2022 Echinacea Hives 05/18/2022 Erythromycin Palpitations High 03/15/2022 Sulfa Antibiotics Hives 05/18/2022 Medications Cholecalciferol (VITAMIN D3 PO) Take 6,000 Units by mouth daily. Active amLODIPine (NORVASC) 5 MG Tablet Take 5 mg by mouth daily. Active citalopram (CeleXA) 20 MG Tablet Take 20 mg by mouth daily. Active Probiotic Product (PROBIOTIC DAILY PO) Take by mouth. Active Calcium Citrate (CITRACAL PO) Take 400 mg by mouth daily. Active ezetimibe (ZETIA) 10 MG Tablet Take 10 mg by mouth daily. Active atorvastatin (LIPITOR) 10 MG Tablet Take 10 mg by mouth daily. Active Cetirizine HCl (ZYRTEC ALLERGY PO) Take 1 Tablet by mouth nightly. Active Active Problems No known active problems Family History Medical History Relation Name Comments Heart Disease Father Diabetes Mother Relation Name Status Comments Father Mother Social History Tobacco Use Types Packs/Day Years Used Date Smoking Tobacco: Former Cigarettes 0.5 20 1 2 - 1991 Smokeless Tobacco: Never Alcohol Use Standard Drinks/Week Comments Yes 2 (1 standard drink = 0.6 oz pur e alcohol) Comments Unknown Sex and Gender Information Value Date Recorded Sex Assigned at Not on file Legal Sex Female 12:14 AM CDT Gender Identity Not on file Sexual Orientation Not on file Last Filed Vital Signs Vital Sign Reading Time Taken Comments Blood Pressure 159/62 05/24/2022 8:53 AM CDT Pulse 78 05/24/2022 8:53 AM CDT Temperature 36.4 C (97.6 F) 05/24/2022 8:53 AM CDT Respiratory Rate 20 05/24/2022 8:53 AM CDT Oxygen Saturation 95% 05/24/2022 8:53 AM CDT Inhaled Oxygen Concentration - - Weight 90.7 kg (200 lb) 05/18/2022 3:00 PM CDT Height 160 cm (5' 3 ) 05/18/2022 3:00 PM CDT Body Mass Index 35.43 05/18/2022 3:00 PM CDT Plan of Treatment Health Maintenance Due Date Last Done Comments DEXA Bone Density 1955 Hepatitis C Virus (HCV) Screening 1955 TdaP Immunization 1955 Colonoscopy 1998 Colorectal Cancer Screening 1998 Cologuard 2003 Immunochemical Fecal Occult Blood 2003 Mammogram 2003 Zoster Immunization (1 of 2) 2003 Influenza Immunization (#1) 2024 10/0 12/2021, 05/15/2021, 05/13/2020, Additional history exists SARS-COV-2 Immunization ( season) 2024 04/15/2022, 04/27/2021, 09/19/2020, Additional history exists Respiratory Syncytial Virus (RSV) Immunization (Adult) (1 - 1-dose 75+ series) 2028 DTaP/Tdap/Td Immunization Discontinued 06/22/2019 Pneumococcal Immunization (50+ years) Completed 06/22/2019, 03/17/2018 Hepatitis B Immunization Aged Out No longer eligible based on patient's age to complete this topic Meningococcal Immunization (ACWY) Aged Out No longer eligible based on patient's age to complete this topic Rotavirus Immunization Aged Out No lo nger eligible based on patient's age to complete this topic Medical Devices Implanted Type Area Pump Press Operator Device Identifier Shelf Expiration Date Model / Serial / Lot Right Intraocular Lens Implanted:Qty: 1 on 03/22/2022 by Jimbo Escalera MD at [facility] Right: Eye [employer] 01/30/2025 [id number] / [id number] / [id number] Technis 1-Piece Iol With Simplicity Delivery System Implanted:Qty: 1 on 05/24/2022 by Jimbo Escalera MD at [facility] Left: Eye 04/06/2025 [id number] / [id number] / [id number] Insurance MEDICARE [employer] SUP Care Teams Pastry Sous Chef Relationship Specialty Start Date End Date Magalis Morales NP [address] [place] [address] [place] [address] PCP - General Advanced Practice Nurse 03/19/22
[2024-10-16 18:42] VITALS: BP 154/57; PULSE 96; RESP 20; TEMP 37.2; O2SAT 94
--- OUTSIDE RECORDS SUMMARY | 2024-10-16 18:42 | XMS_ITS | Patient Health Record ---
Author Organization [facility] Address [address] [place] [address] Care Team Providers Care Indexer Name Role Phone Magalis Cole Primary Care Provider Unavail able Shruthi Salazar Unavailable [phone] [employer], Provider Unavailable Unavailab le Allergies Allergen (clinical drug ingredient) Drug/Non Drug Allergy documented on EMR Reaction Allergy Type Onset Date Status ECHINACEA OTC (uncoded) hives Allergy Active Sulfamethoxazole hives Drug Allergy Active Results Component Value Reference Range Notes Spirometry Reviewed date: Interpretation:Abnormal Performing Lab: Notes/Report: Abnormal SpiroPreBronchodilator_FVC 2.33 SpiroPostBronchodilator_FEF25_75 0 SpiroPreBronchodilator_FEF25_75 0.98 SpiroPreBronchodilator_FEV1 1.59 SpiroPrecentPredictionPost_FEF25_75 0 SpiroPrecentPredictionPost_FEV1 0 SpiroPrecentPredictionPost_FEV1_OVER_FVC 0 SpiroPrecentPredictionPost_FVC 0 SpiroPrecentPredictionPre_FEF25_75 50.8 SpiroPrecentPredictionPre_FEV1 75.4 SpiroPrecentPredictionPre_FEV1_OVER_FVC 89.5 SpiroPrecentPredictionPre_FVC 84.7 SpiroPredicted_FEF25_75 1.93 SpiroPreBronchodilator_FEV1_OVER_FVC 68.54 SpiroPreBronchodilator_PEF 4.07 SpiroPostBronchodilator_FVC 0 SpiroPostBronchodilator_FEV1 0 SpiroPostBronchodilator_FEV1_OVER_FVC 0 SpiroPostBronchodilator_PEF 0 SpiroPredicted_FVC 2.75 SpiroPredicted_FEV1 2.11 SpiroPredicted_FEV1_OVER_FVC 76.62 SpiroPredicted_PEF 5.36 Reason For Referral No Information Medications Medication SIG (Take, Route, Frequency, Duration) Notes Start Date End Date Status SIT (TRADITIONAL) variable per schedule SC per schedule for to be determined Active Arnuity Ellipta 100 MCG/ACT 1 puff inhaled daily for 30 days 12/22/2023 Active Zetia 10 MG 1 tab(s) orally once a day for 30 day(s) Active ZyrTEC Allergy 10 MG 1 tab(s) orally once a day Active Auvi-Q 0.3 MG/0.3ML 0.3 mg intramuscularly once for 1 dose(s) Active ASMANEX TWISTHALER 30 DOSE 220 MCG/INH 1 PUFF(S) INHALED ONCE A DAY (IN THE EVENING) for 90 DAYS *Please review for potential replacement for e-prescription and drug interaction check* Not-Taking FLONASE 50 mcg/inh 1 spray(s) intranasally once a day Active Lipitor 10 MG 1 tab(s) orally once a day for 30 day(s) Active AUVI -Q 0.3 mg 0.3 mg intramuscularly once for 1 dose(s) Active CeleXA 20 MG 1 tab(s) orally once a day for 30 day(s) Active PROBIOTIC FORMULA (BACILLUS COAGULANS) - 1 CAP(S) ORALLY ONCE A DAY *Please review for potential replacement for e-prescription and drug interaction check* Not-Taking PATADAY 0.2% 1 gtt in each affected eye once a day for 90 days Active Vitamin D3 1000 UNIT as directed orally once a day for 30 day(s) Active Flonase Allergy Relief 50 MCG/ACT 1 spray(s) intranasally once a day Not-Taking PROAIR HFA CFC free 90 mcg/inh 2 puff(s) inhaled Q4-6 hours, PRN and per the asthma action plan for 30 day(s) Active Norvasc 5 MG 1 tab(s) orally once a day for 30 day(s) Active Pataday 0.2 % 1 gtt in each affected eye once a day for 90 days Not-Taking Arnuity Ellipta 200 MCG/ACT as directed inhaled every 24 hours for 90 days Not-Taking Immunizations Vaccine Route Administration Date Status Comme nts Pneumovax 23 Unknown 03/21/2018 Administered NOC Prevnar 13 Unknown 06/21/2019 Administered NOC Flucelvax Quadrivalent Unknown 05/04/2018 Administe red NOC Flucelevax Quadrivalent Unknown 05/05/2020 Administ ered Influenza Unknown 03/21/2018 Refused Fluzone Quadrivalent Unknown 06/21/2019 Administered Social History Tobacco Use: Social History Observation Description Date Details (start date - stop date) Former Smoker NA - NA Smoking Smart Form: Question Answer Notes Are you a: former smoker How long it has been since you last smoked? > 10 years Problems Problem Type SNOMED Code ICD Code Onset Dates Problem Status W/U Status Risk Notes Problem Chronic allergic conjunctivitis (09596260) Other chronic allergic conjunctivitis (H10.45) Active confirmed Problem Common cold (15887591) Acute nasopharyngitis [common cold] (J00) Active confirmed Problem Allergic rhinitis caused by pollen (disorder) (26973895) Allergic rhinitis due to pollen (J30.1) Active confirmed Problem Allergic rhinitis caused by animal hair and dander (874772343361572) Allergic rhinitis due to animal (cat) (dog) hair and dander (J30.81) Active confirmed Problem Allergic rhinitis (42417921) Other allergic rhinitis (J30.89) Active confirmed Problem Uncomplicated mild persistent asthma (841572715) Mild persistent asthma, uncomplicated (J45.30) Active confirmed Problem Allergic rhinitis caused by pollen (disorder) (94514877) Allergic rhinitis due to pollen (J30.1) Active confirmed Problem Allergic rhinitis caused by animal hair and dander (056079644386628) Allergic rhinitis due to animal (cat) (dog) hair and dander (J30.81) Active confirmed Problem Allergic rhinitis (42562689) Other allergic rhinitis (J30.89) Active confirmed Problem Exacerbation of mild persistent asthma (disorder) (774200092) Mild persistent asthma with (acute) exacerbation (J45.31) Active confirmed Problem Chronic allergic conjunctivitis (48990843) Other chronic allergic conjunctivitis (H10.45) Active confirmed Problem Acute sinusitis (56309571) Acute sinusitis, unspecified (J01.90) Active confirmed Problem Cough (40837166) Cough (R05) Active confirmed Problem Food allergy (552995553) Allergy to other foods (Z91.018) Active confirmed Problem Chronic sinusitis (62117280) Chronic sinusitis, unspecified (J32.9) Active confirmed Problem Bronchitis (51810624) Bronchitis, not specified as acute or chronic (J40) Active confirmed Vital Signs Oximetry 97 % 04/18/2024 Blood pressure diastolic 83 mm Hg 04/18/2024 Height 63 in 04/18/2024 Blood pressure systolic 144 mm Hg 04/18/2024 Weight 216.4 lbs 04/18/2024 BMI 38.33 kg/m2 04/18/2024 Encounters Encounter Location Date Provider Diagnosis [address] [address] 01/14/2024 Provider [facility] Allergic rhinitis due to pollen J30.1 [facility] [address] [place], [place] [address] [address] [address] 10/25/2023 Shruthi Salazar Mild persistent asthma, uncomplicated J45.30 ; Allergic rhinitis due to pollen J30.1 ; Allergic rhinitis due to animal (cat) (dog) hair and dander J30.81 ; Other allergic rhinitis J30.89 ; Other chronic allergic conjunctivitis H10.45 and Allergy to other foods Z91.018 [facility] [address] [place], [place] [address] [address] [address] 11/16/2023 Shruthi Salazar Allergic rhinitis du e to pollen J30.1 ; Other allergic rhinitis J30.89 ; Allergic rhinitis due to animal (cat) (dog) hair and dander J30.81 and Other chronic allergic conjunctivitis H10.[address] [facility] [address] [address] 11/23/2023 Shruthi Salazar Allergic rhinitis du e to pollen J30.1 ; Other allergic rhinitis J30.89 ; Allergic rhinitis due to animal (cat) (dog) hair and dander J30.81 and Other chronic allergic conjunctivitis H10.45 [address] [address] 11/30/2023 Shruthi Salazar Allergic rhinitis du e to pollen J30.1 ; Other allergic rhinitis J30.89 ; Allergic rhinitis due to animal (cat) (dog) hair and dander J30.81 and Other chronic allergic conjunctivitis H10.45 [facility] [address] [place] [address] [facility] [address] [place] [phone] 12/28/2023 Shruthi Salazar Allergic rhinitis du e to pollen J30.1 ; Other allergic rhinitis J30.89 ; Allergic rhinitis due to animal (cat) (dog) hair and dander J30.81 and Other chronic allergic conjunctivitis H10.45 [facility] [address] [place] [address] [facility] [address] [place] [phone] 01/26/2024 Shruthi Salazar Allergic rhinitis du e to pollen J30.1 ; Other allergic rhinitis J30.89 ; Allergic rhinitis due to animal (cat) (dog) hair and dander J30.81 and Other chronic allergic conjunctivitis H10.45 [facility] [address] [place] [address] [facility] [address] [place] [phone] 02/23/2024 Shruthi Salazar Allergic rhinitis du e to pollen J30.1 ; Other allergic rhinitis J30.89 ; Allergic rhinitis due to animal (cat) (dog) hair and dander J30.81 and Other chronic allergic conjunctivitis H10.45 [facility] [address] [place] [address] [facility] [address] [place] [phone] 03/22/2024 Shruthi Salazar Allergic rhinitis du e to pollen J30.1 ; Other allergic rhinitis J30.89 ; Allergic rhinitis due to animal (cat) (dog) hair and dander J30.81 and Other chronic allergic conjunctivitis H10.45 [facility] [address] [place] [address] [facility] [address] [place] [phone] 04/18/2024 Shruhti Salazar Mild persistent asthma, uncomplicated J45.30 ; Allergic rhinitis due to pollen J30.1 ; Allergic rhinitis due to animal (cat) (dog) hair and dander J30.81 ; Other allergic rhinitis J30.89 ; Other chronic allergic conjunctivitis H10.45 and Allergy to other foods Z91.018 [facility] [address] [place] [address] [facility] [address] [place] [phone] 05/16/2024 Shruthi Salazar Allergic rhinitis du e to pollen J30.1 ; Other allergic rhinitis J30.89 ; Allergic rhinitis due to animal (cat) (dog) hair and dander J30.81 and Other chronic allergic conjunctivitis H10.45 [facility] [address] [place] [address] [facility] [address] [place] [phone] 06/13/2024 Shruthi Salazar Allergic rhinitis du e to pollen J30.1 ; Other allergic rhinitis J30.89 ; Allergic rhinitis due to animal (cat) (dog) hair and dander J30.81 and Other chronic allergic conjunctivitis H10.45 [facility] [address] [place] [address] [facility] [address] [address] 07/11/2024 Shruthidonis Salazar Allergic rhinitis du e to pollen J30.1 ; Other allergic rhinitis J30.89 ; Allergic rhinitis due to animal (cat) (dog) hair and dander J30.81 and Other chronic allergic conjunctivitis H10.45 [facility] [address] [place] [address] [facility] [address] [address] 08/08/2024 Shruthi Salazar Allergic rhinitis du e to pollen J30.1 ; Other allergic rhinitis J30.89 ; Allergic rhinitis due to animal (cat) (dog) hair and dander J30.81 and Other chronic allergic conjunctivitis H10.45 [facility] [address] [place] [address] [facility] [address] [address] 09/05/2024 Shruthi Salazar Allergic rhinitis du e to pollen J30.1 ; Other allergic rhinitis J30.89 ; Allergic rhinitis due to animal (cat) (dog) hair and dander J30.81 and Other chronic allergic conjunctivitis H10.45 [facility] [address] [place] [address] [facility] [address] [address] 10/03/2024 Shruthidonis Salazar Allergic rhinitis du e to pollen J30.1 ; Other allergic rhinitis J30.89 ; Allergic rhinitis due to animal (cat) (dog) hair and dander J30.81 and Other chronic allergic conjunctivitis H10.45 [facility] [address] [facility] [address] [place] [phone] 12/22/2023 Shruthi Marie [facility] [address] [place] [phone] 12/27/2023 Shruthi Salazar [facility] [address] [place] [phone] 05/28/2024 Shruthi Salazar Assessments Encounter Date Diagnosis (ICD Code) Assessment Notes Treatment Notes Treatment Clinical Notes Section Notes 10/25/2023 Allergic rhinitis due to pollen (ICD-10 - J30.1) Sherry clearly suffers from atopic disease based upon our skin testing. Accordingly, we have introduced a new, aggressive medication regimen, discussed nasal washes and allergy-specific avoidance measures. She is tolerating SCIT without large local or systemic symptoms. She was instructed to carry her epinephrine autoinjector for 2 hours after leaving the office. 10/25/2023 Mild persistent asthma, uncomplicated (ICD-10 - J45.30) Persistent asthma and ACT 23. Spirometry continues to show obstruction. Continue Asmanex. Asthma action plan reviewed. We are holding Singulair due to changes in emotions. 11/16/2023 Allergic rhinitis due to pollen (ICD-10 - J30.1) 11/23/2023 Allergic rhinitis due to pollen (ICD-10 - J30.1) 11/30/2023 Allergic rhinitis due to pollen (ICD-10 - J30.1) 12/28/2023 Allergic rhinitis due to pollen (ICD-10 - J30.1) 01/14/2024 Allergic rhinitis due to pollen (ICD-10 - J30.1) 01/26/2024 Allergic rhinitis due to pollen (ICD-10 - J30.1) 02/23/2024 Allergic rhinitis due to pollen (ICD-10 - J30.1) 03/22/2024 Allergic rhinitis due to pollen (ICD-10 - J30.1) 04/18/2024 Allergic rhinitis due to pollen (ICD-10 - J30.1) Sherry clearly suffers from atopic disease based upon our skin testing. Accordingly, we have introduced a new, aggressive medication regimen, discussed nasal washes and allergy-specific avoidance measures. She is tolerating SCIT without large local or systemic symptoms. She was instructed to carry her epinephrine autoinjector for 2 hours after leaving the office. 04/18/2024 Mild persistent asthma, uncomplicated (ICD-10 - J45.30) Persistent asthma and ACT 25. Spirometry at last check showed obstruction but consitent with prior spirometry. Continue Arnuity. Asthma action plan reviewed. We are holding Singulair due to changes in emotions. Repeat spirometry on f/u visit. 05/16/2024 Allergic rhinitis due to pollen (ICD-10 - J30.1) 06/13/2024 Allergic rhinitis due to pollen (ICD-10 - J30.1) 07/11/2024 Allergic rhinitis due to pollen (ICD-10 - J30.1) 08/08/2024 Allergic rhinitis due to pollen (ICD-10 - J30.1) 09/05/2024 Allergic rhinitis due to pollen (ICD-10 - J30.1) 10/03/2024 Allergic rhinitis due to pollen (ICD-10 - J30.1) 10/03/2024 Other allergic rhinitis (ICD-10 - J30.89) 09/05/2024 Other allergic rhinitis (ICD-10 - J30.89) 08/08/2024 Other allergic rhinitis (ICD-10 - J30.89) 07/11/2024 Other allergic rhinitis (ICD-10 - J30.89) 06/13/2024 Other allergic rhinitis (ICD-10 - J30.89) 05/16/2024 Other allergic rhinitis (ICD-10 - J30.89) 04/18/2024 Allergic rhinitis due to animal (cat) (dog) hair and dander (ICD-10 - J30.81) Recommend medications and allergen avoidance measures as above 03/22/2024 Other allergic rhinitis (ICD-10 - J30.89) 02/23/2024 Other allergic rhinitis (ICD-10 - J30.89) 01/26/2024 Other allergic rhinitis (ICD-10 - J30.89) 12/28/2023 Other allergic rhinitis (ICD-10 - J30.89) 11/30/2023 Other allergic rhinitis (ICD-10 - J30.89) 11/23/2023 Other allergic rhinitis (ICD-10 - J30.89) 11/16/2023 Other allergic rhinitis (ICD-10 - J30.89) 10/25/2023 Allergic rhinitis due to animal (cat) (dog) hair and dander (ICD-10 - J30.81) Recommend medications and allergen avoidance measures as above 10/25/2023 Other allergic rhinitis (ICD-10 - J30.89) Recommend medications and allergen avoidance measures as above 11/16/2023 Allergic rhinitis due to animal (cat) (dog) hair and dander (ICD-10 - J30.81) 11/23/2023 Allergic rhinitis due to animal (cat) (dog) hair and dander (ICD-10 - J30.81) 11/30/2023 Allergic rhinitis due to animal (cat) (dog) hair and dander (ICD-10 - J30.81) 12/28/2023 Allergic rhinitis due to animal (cat) (dog) hair and dander (ICD-10 - J30.81) 01/26/2024 Allergic rhinitis due to animal (cat) (dog) hair and dander (ICD-10 - J30.81) 02/23/2024 Allergic rhinitis due to animal (cat) (dog) hair and dander (ICD-10 - J30.81) 03/22/2024 Allergic rhinitis due to animal (cat) (dog) hair and dander (ICD-10 - J30.81) 04/18/2024 Other allergic rhinitis (ICD-10 - J30.89) Recommend medications and allergen avoidance measures as above 05/16/2024 Allergic rhinitis due to animal (cat) (dog) hair and dander (ICD-10 - J30.81) 06/13/2024 Allergic rhinitis due to animal (cat) (dog) hair and dander (ICD-10 - J30.81) 07/11/2024 Allergic rhinitis due to animal (cat) (dog) hair and dander (ICD-10 - J30.81) 08/08/2024 Allergic rhinitis due to animal (cat) (dog) hair and dander (ICD-10 - J30.81) 09/05/2024 Allergic rhinitis due to animal (cat) (dog) hair and dander (ICD-10 - J30.81) 10/03/2024 Allergic rhinitis due to animal (cat) (dog) hair and dander (ICD-10 - J30.81) 05/16/2024 Other chronic allergic conjunctivitis (ICD-10 - H10.45) 10/03/2024 Other chronic allergic conjunctivitis (ICD-10 - H10.45) 09/05/2024 Other chronic allergic conjunctivitis (ICD-10 - H10.45) 08/08/2024 Other chronic allergic conjunctivitis (ICD-10 - H10.45) 07/11/2024 Other chronic allergic conjunctivitis (ICD-10 - H10.45) 06/13/2024 Other chronic allergic conjunctivitis (ICD-10 - H10.45) 04/18/2024 Other chronic allergic conjunctivitis (ICD-10 - H10.45) Given ocular signs and symptoms I encouraged allergy avoidance measures and meds as above. If symptoms persist, consider adding additional medications including intraocular antihistamine/ma st cell stabilizer, PRN 03/22/2024 Other chronic allergic conjunctivitis (ICD-10 - H10.45) 02/23/2024 Other chronic allergic conjunctivitis (ICD-10 - H10.45) 12/28/2023 Other chronic allergic conjunctivitis (ICD-10 - H10.45) 11/16/2023 Other chronic allergic conjunctivitis (ICD-10 - H10.45) 01/26/2024 Other chronic allergic conjunctivitis (ICD-10 - H10.45) 11/30/2023 Other chronic allergic conjunctivitis (ICD-10 - H10.45) 11/23/2023 Other chronic allergic conjunctivitis (ICD-10 - H10.45) 10/25/2023 Other chronic allergic conjunctivitis (ICD-10 - H10.45) Given ocular signs and symptoms I encouraged allergy avoidance measures and meds as above. If symptoms persist, consider adding additional medications including intraocular antihistamine/ma st cell stabilizer, PRN 10/25/2023 Allergy to other foods (ICD-10 - Z91.018) Sherry has developed hives in the past while drinking tea. We discussed that tea allergy would need to be evaluated by lab work. For now, continue avoidance 04/18/2024 Allergy to other foods (ICD-10 - Z91.018) Sherry has developed hives in the past while drinking tea. We discussed that tea allergy would need to be evaluated by lab work. For now, continue avoidance 10/25/2023 Other 04/18/2024 Other Plan Of Treatment Next Appt Details Provider Name:Shruthi monroy, 10/31/2024 10:00:00 AM, [address] [employer], [address], [place], [address], Provider Name:Shruthioralia hernandezbeltran, 10/31/2024 11:00:00 AM, [address] [employer], [address], [place], [address], Insurance Providers Payer Name Payer Address Payer Phone Subscriber Number Group Number Insured Name Patient Relationship to Insured Coverage Start Date Coverage End Date [employer] (Medicare) Attention Claims [address] [place] [address] [id number] Sherry Moffett Self - patient is the insured [address] [place] [address] [id number] Sherry Moffett Self - patient is the insured 8 Medical (General) History Medical History History ICD Code Essential (primary) hypertension Anxiety disorder, unspecified Hyperlipidemia Cough R05 Mild persistent asthma, uncomplicated J4 5.30 Bronchitis, not specified as acute or ch ronic J40 Chronic sinusitis, unspecified J32.9 Allergic rhinitis due to pollen J30.1 Allergic rhinitis due to animal (cat) (d og) hair and dander J30.81 Other allergic rhinitis J30.89 Allergy to other foods Z91.018 Other chronic allergic conjunctivitis H1 0.45 Surgical History Surgery Date(Month/Year) Hospitalization History Reason Date(Month/Year) Bronchitis 2008
--- NOTE | 2024-10-16 19:02 | ED_ITS ---
HPI - URI/Sore Throat General Chief Complaint: Upper Respiratory Infection Stated Complaint: Flu/cold symptoms Source: patient Mode of arrival: ambulatory Limitations: no limitations History of Present Illness HPI Narrative: 69-year-old female with a history of asthma presented for complaint of nonproductive cough , shortness of breath with exertion, and wheezing worsening for 5 days. endorses pain with deep breaths and subjective fever/chills. patient has been using previously prescribed inhalers. She does take daily Zyrtec and receives monthly allergy shots. denies chest pain, palpitations, n/v/d. Related Data Home Medications ?Medication ?Instructions ?Recorded ?Confirmed ?Last Taken ?Type amlodipine 5 mg tablet 5 mg PO DIRECTED 03/12/23 03/12/23 Unknown History atorvastatin 10 mg tablet 10 mg PO DIRECTED 03/12/23 03/12/23 Unknown History citalopram 20 mg tablet 20 mg PO DIRECTED 03/12/23 03/12/23 Unknown History ezetimibe 10 mg tablet 10 mg PO DIRECTED 03/12/23 03/12/23 Unknown History Allergies Allergy/AdvReac Type Severity Reaction Status Date / Time Sulfa (Sulfonamide Allergy Severe Hives Verified 10/16/24 18:48 Antibiotics) azithromycin Allergy Intermediate heart Verified 10/16/24 18:48 arrthymias ofloxacin AdvReac Intermediate anxiety Verified 10/16/24 18:48 Review of Systems Review of Systems: per HPI All systems reviewed & are unremarkable except as noted in HPI and below PMFSH Past Medical History Medical History Asthma Hypertension Surgical History Surgical History No pertinent past surgical history Family History Family History Mother Family history non-contributory Social History Social History Smoking status: Never smoker Substance use: never Living arrangements: with family Gender identity (if verbalized by the patient): Female Sexual Orientation (if Verbalized by the Patient): Straight or Heterosexual Spiritual care concerns: No Comments At time of signature, I have reviewed and agree with nursing past medical, surgical, social and family history unless otherwise noted. Please see nursing chart for further information. There is no relevant family history pertinent to the presenting complaint Exam Narrative: GENERAL: mildly ill-appearing, in no acute distress. EYES: EOMI. No redness or drainage. Conjunctivae normal. ENT: Mucous membranes pink and moist. No rhinorrhea. TMs normal bilaterally. Throat normal. Uvula midline. NECK: Normal AROM. Supple. CHEST: No respiratory distress. Wheezing to all davis. 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 HEART: Regular rate and rhythm. No murmur appreciated. ABDOMEN: Soft, nontender, nondistended, normal active bowel sounds. SKIN: Warm, dry, no rash. Capillary refill normal. Normal skin turgor. NEURO: Alert and oriented x3. Gait steady. Course Course Emergency Course: Patient is aware of diagnosis, understands and agrees to treatment plan. Anticipatory guidance given. Patient agrees to follow-up as directed and is aware of reasons to seek care at the emergency department. Portions of this record may have been created with voice recognition software Level of Care: Express Care Visit Vital Signs Vital signs: Vital Signs Temperature 98.9 F 10/16/24 18:42 Pulse Rate 96 10/16/24 18:42 Respiratory Rate 20 10/16/24 18:42 Blood Pressure 154/57 H 10/16/24 18:42 Pulse Oximetry 94 10/16/24 18:42 Oxygen Delivery Room Air 10/16/24 18:42 Temperature 98.9 F 10/16/24 18:42 Pulse Rate 96 10/16/24 18:42 Respiratory Rate 20 10/16/24 18:42 Blood Pressure 154/57 H 10/16/24 18:42 Pulse Oximetry 94 10/16/24 18:42 Oxygen Delivery Room Air 10/16/24 18:42 MDM - URI/Sore Throat MDM Narrative Medical decision making narrative: Negative flu and COVID. Discussed physical exam findings And chest x-ray. Rx abx and medrol pack. Pt has inhalers. Advised supportive measures and signs/symptoms to go to the ER. Pt is appropriate for outpt treatment and f/u. Differential Diagnosis Differential diagnosis: Likely other (Angioedema, perforation, asthma, pneumonia, PE, tension pneumothorax, cardiac tamponade [place], pericarditis, pleural effusion, CHF, bronchitis, cardiac arrhythmia) Lab Data Labs: Lab Results 10/16/24 Range/Units 18:46 POC Influenza A Ag Negative (Negative) POC Influenza B Ag Negative (Negative) POC SARS CoV-2 Ag Negative (Negative) Imaging Data Radiologist's impression: Patient: Sherry Moffett : 1955 MR#: [id number] Age: 69 Acct:[id number] Loc: [facility] ADM Date: 10/16/24Attending Dr: Ordering Physician: Danielle Donnelly APRN Date of Service: 10/16/24 Procedure(s): XR chest 2V Accession Number(s): [id number] cc: Alley, Nelia Gallegos APRN; Danielle Donnelly APRN~ CHEST RADIOGRAPH, PA AND LATERAL CLINICAL HISTORY: cough . COMPARISON: 03/12/2023 TECHNIQUE: PA and lateral views of the chest. FINDINGS The cardiomediastinal silhouette is unremarkable. Increased airspace opacification within the left upper lobe for which an early infiltrate is suspected. The remainder of the lungs are clear. IMPRESSION: Left upper lobe infiltrate, as detailed above. Discharge Plan Discharge Clinical Impression: Acute lower respiratory infection Patient Disposition: Home, Self-Care Condition: Stable Instructions: Antibiotic Form, Pneumonia (ED) Additional Instructions: flu and COVID negative Pneumonia is a lung infection that can cause a fever, cough, and trouble breathing. How it spreads: When someone with bacterial pneumonia coughs, sneezes, or talks, they release respiratory droplets into the air that can be inhaled by others.?You can also get pneumonia by touching a contaminated surface or object and then touching your mouth or nose. You're generally contagious for around 48 hours after starting antibiotics and your fever goes away.? To prevent the spread of pneumonia, you can:? ? Get vaccinated? ? Wash your hands often with soap and water for 20 seconds? ? Cover your mouth with a tissue when you cough or sneeze? ? Avoid people who are already sick with pneumonia? ? Stay home when you have pneumonia Take antibiotics as directed until complete. eat small frequent meals. Get lots of rest and drink fluids. Alternate Tylenol and ibuprofen for pain/fever [id number] cough medication can cause drowsiness, take according to package directions If you have nasal congestion, you can take Zyrtec, Claritin along with Flonase spray Call your Primary Care Doctor tomorrow and make a follow-up appointment Go to the ER for worsening symptoms or concerns Patient Language: Ukrainian Prescriptions: New methylprednisolone [Medrol (Josafat)] 4 mg tablets,dose pack See Rx Instructions .ROUTE .COMPLEX Qty: 21 0RF Rx Instructions: orally per package directions amoxicillin-pot clavulanate 875-125 mg tablet 1 tablet PO Q12H 7 Days Qty: 14 0RF No Action atorvastatin 10 mg tablet 10 mg PO DIRECTED amlodipine 5 mg tablet 5 mg PO DIRECTED citalopram 20 mg tablet 20 mg PO DIRECTED ezetimibe 10 mg tablet 10 mg PO DIRECTED Follow-up/Referrals: Alley,Nelia Gallegos, MANUFACTURING MAINTENANCE MANAGER [Primary Care Provider] -
[2024-10-16 19:04] LABS: EDCOVIDSCREEN Negative (Negative); EDINFLUASCREEN Negative (Negative); EDINFLUBSCREEN Negative (Negative)
== END 2024-10-16 19:56 | disposition home or self-care (01) ==
PROVIDERS: Emergency Provider Nurse Practitioner Family; PCP Nurse Practitioner Family
DX: J22 Unspecified acute lower respiratory infection (principal); Z20.822 Contact with and (suspected) exposure to COVID-19; J45.909 Unspecified asthma, uncomplicated; I10 Essential (primary) hypertension
CPT/HCPCS: 71046; 87426; 87804; 99203; G0463